=== PATIENT | male | born 1970 | race Caucasian/White ===

== ENCOUNTER 2021-11-21 00:48 | Day surgery (SDC) | payer BC, SELFPAY ==
[2021-11-10 15:41] VITALS: BMI 41.6
[2021-11-21 07:37] VITALS: BMI 39.9
[2021-11-21 07:39] VITALS: BP 138/84; PULSE 84; RESP 18; TEMP 35.9; O2SAT 99
[2021-11-21] MEDS: LACTATED RINGERS 1,000 ML 150 ML IV CONT (07:45)
--- NOTE | 2021-11-21 07:55 | WPDANESEPPF ---
Anes - Initial Pre Proc Eval Procedure: Operation Date: 11/21/21 08:30 Proposed Procedures p Screening Colonoscopy - Javier Iqbal MD Date/Time: 11/21/21 07:55 Surgeon: Javier Iqbal MD Pre Op Diagnosis: neoplasm screening Patient Data Age: 51 Gender: M Height: 1.85 m Weight: 137.1 kg Last Vital Signs Temp 96.7 F L 11/21/21 07:39 Pulse 84 11/21/21 07:39 Resp 18 11/21/21 07:39 BP 138/84 11/21/21 07:39 Pulse Ox 99 11/21/21 07:39 Allergies Allergy/AdvReac Type Severity Reaction Status Date / Time Penicillins Allergy Unknown Unknown Verified 11/10/21 15:44 Home Medications Medication Instructions Recorded Confirmed Type sodium sul 1.479 gram-potas ch See Rx Instructions PO PER PKG DIR 08/18/21 11/10/21 Rx 0.188 gram-magnes sul 0.225 gram #24 tabs tablet (Sutab) fosinopril 20 1 tablet PO DAILY 11/10/21 11/10/21 History mg-hydrochlorothiazide 12.5 mg tablet Patient hx anesthesia problems: none Family hx anesthesia problems: none Results Review: All pre-operative results and documents have been reviewed as part of the pre-operative evaluation. [facility] Family History Family History (Updated 08/08/10 @ 09:41 by DOCTOR UNKNOWN) Other Family history of arthritis Hypertension Social History Social History Smoking packs per day: 1 Smoking cigarettes per day: 20.0 Years smoked: 34 Smoking pack-years: 34.00 Smoking status: Current every day smoker Tobacco type: cigarettes Alcohol intake: current Alcohol use details: several times a week and all weekends Substance use: former Substance use type: former substance user Living arrangements: alone Spiritual care concerns: No Anes - Eval Final PreProcedure Day of Procedure 11/21/21 07:55 Patient weight: morbidly obese Heart: regular rate and rhythm Lungs: clear to auscultation Airway: Mallampati scale class III Neurological: alert and oriented Last oral intake: >/= 8 hours ASA classification: III Emergent: no Anesthetic plan: proceed Anesthesia type and monitoring: general GIVS and standard monitoring Results Review: All pre-operative results and documents have been reviewed as part of the pre-operative evaluation. Informed Consent: The patient's anesthetic plan and its attendant risks and benefits were discussed with the patient/family/POA. Questions were solicited and answers provided to the satisfaction of the patient/family/POA.
--- NOTE | 2021-11-21 08:08 | PM.HPGS ---
History of Present Illness History of Present Illness Consent: Risks, benefits, and alternatives have been discussed and questions answered. Patient agrees to proceed with procedure. Chief complaint: neoplasm screening Narrative: Ramos Tong is a 51 year old male here for first screening colonoscopy Review of Systems Constitutional: Constitutional: Denies headache(s) and Denies weakness Eyes: Eyes: Denies blurry vision ENT: Reports Normal hearing present, Denies headache(s) and Denies neck pain Cardiovascular: Cardiovascular: Denies chest pain and Denies dyspnea Respiratory: Respiratory: Denies dyspnea Gastrointestinal: Gastrointestinal: Reports no additional gastrointestinal complaints Genitourinary: Genitourinary: Denies dysuria Musculoskeletal: Musculoskeletal: Denies neck pain Integumentary/Breasts: Skin/Breast: Denies dry skin Neurologic: Reports Normal hearing present, Denies headache(s) and Denies weakness Psychiatric: Psychiatric: Denies anxiety Endocrine: Endocrine: Denies change in body appearance Hematologic/Lymphatic: Hematologic/Lymphatic: Denies easy bleeding Allergic/Immunologic: Allergic/Immunologic: Denies urticaria [facility] Past Medical History Medical History (Updated 11/21/21 @ 08:09 by Javier Iqbal MD) Colon cancer screening Family History Family History (Updated 08/08/10 @ 09:41 by DOCTOR UNKNOWN) Other Family history of arthritis Hypertension Social History Social History Smoking packs per day: 1 Smoking cigarettes per day: 20.0 Years smoked: 34 Smoking pack-years: 34.00 Smoking status: Current every day smoker Tobacco type: cigarettes Alcohol intake: current Alcohol use details: several times a week and all weekends Substance use: former Substance use type: former substance user Living arrangements: alone Spiritual care concerns: No Meds Home Medications and Allergies Home Medications Medication Instructions Recorded Confirmed Type sodium sul 1.479 gram-potas ch See Rx Instructions PO PER PKG DIR 08/18/21 11/10/21 Rx 0.188 gram-magnes sul 0.225 gram #24 tabs tablet (Sutab) fosinopril 20 1 tablet PO DAILY 11/10/21 11/10/21 History mg-hydrochlorothiazide 12.5 mg tablet Allergies Allergy/AdvReac Type Severity Reaction Status Date / Time Penicillins Allergy Unknown Unknown Verified 11/10/21 15:44 Vital Signs Vital Signs - 24 hr 11/21/21 07:39 Temperature 96.7 F L Pulse Rate 84 Respiratory Rate 18 Blood Pressure 138/84 Pulse Oximetry 99 Exam Const: General: comfortable and no acute distress HENMT: General nose exam: Normal nares present Eyes: General: appearance normal, both eyes and all related structures Neck: Neck: no JVD Resp: Auscultation: clear to auscultation bilaterally Cardio: Rate: regular rate Rhythm: regular rhythm GI: Inspection: non-distended GI Palp: Yes Soft to palpation Skin: General skin exam: normal color Neuro: General: gait normal Speech: normal speech Extrem: General: normal to inspection Psych: Mental Status: mental status grossly normal Assessment and Plan Assessment and plan (1) Colon cancer screening: Code(s): Z12.11 - Encounter for screening for malignant neoplasm of colon Status: Acute Assessment and Plan: colonoscopy
[2021-11-21 08:33] VITALS: BP 102/62; PULSE 84; RESP 20; O2SAT 99
[2021-11-21 08:43] VITALS: BP 110/59; PULSE 75; RESP 19; O2SAT 99
[2021-11-21 08:53] VITALS: BP 130/83; PULSE 66; RESP 14; O2SAT 99
== END 2021-11-21 09:25 | disposition home or self-care (01) ==
PROVIDERS: PCP Physician Assistant; Visit Provider Internal Medicine Gastroenterology
PROC: 0DJD8ZZ Inspection of Lower Intestinal Tract, Via Natural or Artificial Opening Endoscopic (ICD-10-PCS; CPT 45378; principal; 2021-11-21 08:30)
DX: Z12.11 Encounter for screening for malignant neoplasm of colon (principal); K62.1 Rectal polyp; D12.5 Benign neoplasm of sigmoid colon; D12.2 Benign neoplasm of ascending colon; F17.210 Nicotine dependence, cigarettes, uncomplicated; E66.9 Obesity, unspecified; Z68.39 Body mass index [BMI] 39.0-39.9, adult
CPT/HCPCS: 45385; 88305; J2704; J7120

== ENCOUNTER 2022-05-04 12:52 | Inpatient (IN) | payer BC, SELFPAY ==
[2022-05-04] VITALS (30 sets, daily range): BP systolic 77–117; BP diastolic 30–81; PULSE 87–106; RESP 12–26; TEMP 36–36.8; O2SAT 92–99; BMI 39.5
--- NOTE | 2022-05-04 | ECHO_ITS ---
Patient Info Name: Ramos Tong Age: 51 years : 1970 Gender: Male Ht: 73 in Wt: 295 lbs BSA: 2.68 m2 HR: 100 bpm BP: 86 / 46 mmHg Technical Quality: Poor Exam Date: 05/04/2022 2:54 PM Exam Location: [facility] [facility] Exam Room: [facility] ED 5 B1 Patient Status: Inpatient Admit Date: 05/04/2022 Staff Ordering Physician: Giovani Mcpherson MD Manager Strategic Development: Cyndi Lovelace RDCS Attending Provider: Giovani Mcpherson MD Exam Type: CA echo dop color flow w con Study Info Indications - DYSPNEA HYPOTENSION Complete two-dimensional, color flow and Doppler transthoracic echocardiogram is performed with contrast to opacify the left ventricle and to improve the deliniation of the left ventricle endocardial borders. Contrast/Agitated Saline Contrast/Ag. Saline: Definity Amount: 2.00 ml Administered By: Cyndi Lovelace [facility] Existing IV Access: Yes IV Access Condition: patent with no signs of infiltration Reason for Poor Study: patient body habitus Summary 1. Technically suboptimal study due to poor sonographic images. 2. Definity contrast administered improved wall motion interpretation. 3. Left ventricular chamber dimension is normal. 4. Left ventricular systolic function is normal, estimated at 60-65%. 5. The left ventricular diastolic function is normal. 6. E/e' 8 is minimally elevated. 7. The mitral valve has mildly calcified annulus. 8. No pulmonary hypertension, estimated pulmonary arterial systolic pressure is 37 mmHg. Left Ventricle E/e' 8 is minimally elevated. Technically suboptimal study due to poor sonographic images. Left ventricular chamber dimension is normal. Left ventricular systolic function is normal, estimated at 60-65%. The left ventricular diastolic function is normal. Definity contrast administered improved wall motion interpretation. Right Ventricle Right ventricular chamber dimension is not well visualized. Left Atria Left atrial chamber dimension is normal. Right Atria Right atrial chamber dimension is not well visualized. Aortic Valve The aortic valve is not well visualized. Cannot determine number of aortic valve leaflets. There is no aortic valve stenosis. There is no aortic valve regurgitation. Pulmonic Valve The pulmonic valve is not well visualized. Mitral Valve The mitral valve has mildly calcified annulus. There is no mitral valve stenosis. There is no mitral valve regurgitation. Tricuspid Valve The tricuspid valve leaflets are not well visualized. There is no tricuspid valve regurgitation. No pulmonary hypertension, estimated pulmonary arterial systolic pressure is 37 mmHg. Pericardium/Pleural There is no pericardial effusion. Inferior Vena Cava Normal inferior vena cava with >50% collapse upon inspiration consistent with normal right atrial pressure, 5 mmHg. Aorta The aortic root size at the sinus of Valsalva is not well visualized. Left Ventricular Outflow Tract Name Value Normal LVOT 2D LVOT Diameter 2.20 cm LVOT Doppler LVOT Peak Gradient 4 mmHg
--- NOTE | ~2022-05-04 | CT_ITS ---
EXAMINATION: CT diagnostic chest wo con DATE: 05/04/2022 15:42 INDICATION: pneumonia, dyspnea, septic shock TECHNIQUE: Computed tomography (CT) of the chest was performed without intravenous contrast. Addition al 3D reconstructions utilizing coronal maximum intensity projection (MIP) were performed. Automated exposure control and iterative reconstruction technique were employed. The dose-length product was 93 2.34 mGy-cm. COMPARISON: None FINDINGS: Small bilateral posterior layering pleural effusions with associated compressive atelectasis in the d ependent lower lobes.. Innumerable small pulmonary nodules scattered throughout both lungs with rando m distribution, the largest measuring up to 12 mm which is most concerning for metastatic disease. He art size is normal. Atherosclerotic coronary artery calcific location. No pericardial effusion. Multi ple enlarged mediastinal, supraclavicular and lower jugular chain of nodes consistent with metastatic disease. There are few soft tissue density nodules in the paravertebral and subpleural fat at the po sterior medial left mid to lower hemithorax. There are also multiple subtle hypodense hepatic nodules also suspicious for metastatic disease. Large region of decreased attenuation in the posterior right hepatic lobe which could be related to focal fat or larger malignant mass. Chronic appearing mild an terior wedging of a few vertebral bodies along with bridging osteophytes at multiple levels at the th oracolumbar junction, the latter consistent with diffuse idiopathic skeletal hyperostosis (DISH). IMPRESSION: 1. Innumerable pulmonary nodules, enlarged mediastinal and supraclavicular lymph nodes and multiple h epatic nodules, all consistent with metastatic disease. Would recommend ultrasound-guided core needle biopsy of one of the right supra clavicular lymph nodes. 2. Small bilateral dependently layering pleural effusions. Reviewed, dictated and finalized at location A. NEY BUILDER HELPER IMPRESSION: 1. Innumerable pulmonary nodules, enlarged mediastinal and supraclavicular lymp h nodes and multiple hepatic nodules, all consistent with metastatic disease. W ould recommend ultrasound-guided core needle biopsy of one of the right supra c lavicular lymph nodes. 2. Small bilateral dependently layering pleural effusions.
--- NOTE | ~2022-05-04 | XR_ITS ---
EXAMINATION: XR chest 1V portable DATE: 05/07/2022 15:14 INDICATION: Shortness of breath. TECHNIQUE: A single frontal view of the chest was obtained. COMPARISON: Chest single view from 05/04/2022, CT abdomen and pelvis 05/04/2022 FINDINGS: The right lateral costophrenic angle is excluded. There are small pleural effusions. There is a diffuse reticular nodular pattern in the lungs. There are airspace opacities in the lower lung z ones. No pneumothorax. The heart size is normal. IMPRESSION: 1. Worsened diffuse lung disease, likely a combination of widespread pulmonary metastatic disease and pulmonary edema. 2. Small pleural effusions. Reviewed, dictated and finalized at location A. ANALYST
--- NOTE | ~2022-05-04 | CT_ITS ---
EXAMINATION: CT abdomen pelvis wo con DATE: 05/04/2022 17:30 INDICATION: sepsis, lymphadenopathy TECHNIQUE: Computed tomography (CT) of the abdomen and pelvis was performed without intravenous contr ast. Automated exposure control and iterative reconstruction technique were employed. The dose-length product was 1610.09 mGy-cm. COMPARISON: None. FINDINGS: Lower thorax: Innumerable pulmonary nodules. Moderate bilateral pleural effusions. Liver: Enlarged liver. Nodular border. Heterogeneous parenchyma, with multiple masses. Likely large p osterior right lobe mass. Biliary/Gallbladder: Gallbladder distention, with mild inflammatory change. No bile duct dilation. Pancreas: No mass or duct dilation. Spleen: Normal. Adrenals:No mass. Kidneys: No mass, stone, or hydronephrosis. GI tract: No small or large bowel dilation. Normal appendix. Mesentery/Peritoneum: No ascites, mass, or free air. Upper abdominal and bandar hepatic lymphadenopath y. Retroperitoneum: No mass. Extensive retroperitoneal lymphadenopathy. Pelvis: Surgically absent uterus. Small volume free fluid. Soft Tissues: Soft tissue edema in the lower abdominal wall pannus. Mild body wall edema. Bones: Lytic lesion in L1 1 represent a metastatic lesion or hemangioma. Small lytic lesion involvin g the superior endplate of L3, may represent a metastatic lesion or a Schmorl's node. IMPRESSION: 1. Multiple pulmonary nodules suspicious for metastatic disease. Moderate bilateral pleural effusions . 2. Multiple hepatic masses, may represent primary and secondary lesions versus metastatic lesions zac ne. 3. Gallbladder hydrops with mild inflammatory change, correlate with biliary labs. 4. Retroperitoneal lymphadenopathy. 5. Inflammatory change versus edema in the lower abdominal pannus. 6. Lytic L1 and L3 lytic lesions may represent benign or malignant process. Reviewed, dictated and finalized at location K. WRESTLING COACH IMPRESSION: 1. Multiple pulmonary nodules suspicious for metastatic disease. Moderate bilat eral pleural effusions. 2. Multiple hepatic masses, may represent primary and secondary lesions versus metastatic lesions alone. 3. Gallbladder hydrops with mild inflammatory change, correlate with biliary la bs. 4. Retroperitoneal lymphadenopathy. 5. Inflammatory change versus edema in the lower abdominal pannus. 6. Lytic L1 and L3 lytic lesions may represent benign or malignant process.
--- NOTE | ~2022-05-04 | XR_ITS ---
Portable chest x-ray Comparison: 05/10/2022 Clinical History: Respiratory failure Findings: Endotracheal tube, NG tube, and right IJ line are in place. Left-sided central venous line tip is at the left superior mediastinum. Small bilateral pleural effusions are present with diffuse hazy and interstitial pulmonary disease. Cardiomediastinal silhouette is stable. Bones and soft tiss ues are unremarkable. Impression: Moderate to advanced pulmonary edema pattern with small bilateral pleural effusions. Support tubes, as above. Left-sided central venous line tip is at the left superior mediastinum. Cons ider advancement into the SVC. Reviewed, dictated and finalized at location . ER BAKER Impression: Moderate to advanced pulmonary edema pattern with small bilateral pleural effus ions. Support tubes, as above. Left-sided central venous line tip is at the left supe rior mediastinum. Consider advancement into the SVC.
--- NOTE | ~2022-05-04 | XR_ITS ---
Supine and upright views of the abdomen Clinical history: Abdominal pain Findings: Bowel gas pattern is nonspecific. Probable hyperdense stool rather than mass in the right l ower quadrant. No evidence for obstruction or free air. No abnormal mass lesion or calcification is s een. Osseous structures are intact. Probable small bilateral pleural effusions with bibasilar pulmona ry airspace disease. Impression: No significant abnormality in the abdomen or pelvis. Small bilateral pleural effusions with probable moderate pulmonary edema. Correlate clinically for pn eumonia. Reviewed, dictated and finalized at location M. EGE INTERN Impression: No significant abnormality in the abdomen or pelvis. Small bilateral pleural effusions with probable moderate pulmonary edema. Corre late clinically for pneumonia.
--- NOTE | ~2022-05-04 | XR_ITS ---
Portable chest x-ray Comparison: 05/11/2022 at 5:20 AM Clinical History: Respiratory failure Findings: Endotracheal tube, NG tube, and bilateral central venous lines are in place, unchanged. Sm [id number] bilateral pleural effusions are present with advanced pulmonary edema pattern. Cardio mediastinal silhouette is stable. Bones and soft tissues are unremarkable. Impression: Advanced pulmonary edema pattern with [id number] bilateral pleural effusions. Stable support tubes. Reviewed, dictated and finalized at location . NSION SERVICE ADVISOR Impression: Advanced pulmonary edema pattern with [id number] bilateral pleural effus ions. Stable support tubes.
--- NOTE | ~2022-05-04 | CT_ITS ---
EXAMINATION: CT chest abdomen pelvis wo con DATE: 05/08/2022 14:04 INDICATION: Hypotension. TECHNIQUE: Computed tomography (CT) of the chest, abdomen, and pelvis was performed without intraveno us contrast. Automated exposure control and iterative reconstruction technique were employed. The dos e-length product was 2215.96 mGy-cm. COMPARISON: CT abdomen and pelvis 05/04/2022, chest CT 05/04/2022 FINDINGS: CHEST CT: There are moderate-sized pleural effusions. There are innumerable nodules in the lungs bilaterally. T here is septal thickening in the lungs, consistent with pulmonary edema. There is mediastinal, bilate ral hilar, and bilateral supraclavicular lymphadenopathy. A right internal jugular central venous cat heter is seen with tip at the superior cavoatrial junction. The heart size is normal. There are coron shea artery calcifications. No pericardial effusion. Main pulmonary is enlarged, consistent with pulmo nary arterial hypertension. There are old healed bilateral rib fractures. ABDOMEN/PELVIS CT: The liver demonstrates surface nodularity, consistent with cirrhosis. There are multiple ill-defined hypodense masses in the liver, worst in right hepatic lobe where there is a 13.7 cm mass. There is co ntrast in the gallbladder, which is normal in size. The spleen, pancreas, adrenal glands, and kidneys are normal. The bladder is decompressed by a Lan catheter. There are no dilated loops of bowel. Th ere is periportal, periceliac, peripancreatic, left para-aortic, aortocaval, and bilateral common ba ac lymphadenopathy. There is a right inguinal hernia containing fat. There is a small volume of ascit es. Body wall edema is noted. There are chronic bilateral L5 pars defects. There is a lytic lesion in L1 vertebral body. IMPRESSION: 1. Pulmonary nodules, liver masses, and chest and abdominal lymphadenopathy, consistent with metastat ic disease. Biopsy results are pending. 2. Mild pulmonary edema. 3. Moderate-sized pleural effusions with worsening on the left. 4. Small volume of ascites with interval worsening. 5. Cirrhosis of liver. 6. L1 lytic lesion, which may be a hemangioma or metastatic disease. Reviewed, dictated and finalized at location A. WORKS INSPECTOR IMPRESSION: 1. Pulmonary nodules, liver masses, and chest and abdominal lymphadenopathy, co nsistent with metastatic disease. Biopsy results are pending. 2. Mild pulmonary edema. 3. Moderate-sized pleural effusions with worsening on the left. 4. Small volume of ascites with interval worsening. 5. Cirrhosis of liver. 6. L1 lytic lesion, which may be a hemangioma or metastatic disease.
--- NOTE | ~2022-05-04 | XR_ITS ---
EXAMINATION: XR chest 1V portable DATE: 05/08/2022 12:09 INDICATION: Shortness of breath TECHNIQUE: frontal view of the chest was obtained. COMPARISON: Chest radiograph dated 05/07/[address] dated 05/04/2022 FINDINGS: No significant change in diffuse bilateral indistinct interstitial pattern with peribronchial cuffing and airspace opacities in bilateral lower lung zones. Blunting at the bilateral costophrenic angles. The cardiomediastinal silhouette is normal. Visualized bones and soft tissues are unremarkable. IMPRESSION: 1. No significant change in diffuse bilateral lung disease consistent with likely combination of pulm onary edema superimposed over metastatic disease better appreciated on prior CT. Differential include s pneumonia. 2. Small bilateral pleural effusions. Reviewed, dictated and finalized at location A. H AGENT IMPRESSION: 1. No significant change in diffuse bilateral lung disease consistent with like ly combination of pulmonary edema superimposed over metastatic disease better a ppreciated on prior CT. Differential includes pneumonia. 2. Small bilateral pleural effusions.
--- NOTE | ~2022-05-04 | US_ITS ---
EXAMINATION: US biopsy lymph node DATE: 05/06/2022 13:27 INDICATION: Liver mass, multiple pulmonary nodules and enlarged lymph nodes suspicious for metastatic disease. TECHNIQUE: The procedure including the risks and benefits was discussed with the patient. Risks discu ssed included bleeding and infection. The patient understood the risks and agreed to proceed. The sk in overlying the right supraclavicular region was prepped and draped in usual sterile fashion. Anest hetic was administered with 1% lidocaine subcutaneously. An 18 gauge core biopsy needle was advanced under continuous ultrasound observation to the lesion of interest. 3 core biopsy specimens were obt ained. The needle was removed and the entry site was cleaned and dressed. Post procedure ultrasound demonstrated no hemorrhage. FINDINGS: Ultrasound images demonstrate 2.2 x 1.9 x 1.4 cm right supraclavicular lymph node with lobu lar margins. Subsequent images demonstrate biopsy needle advanced into the lymph node node of concern . IMPRESSION: 1. Successful Ultrasound-guided biopsy of a 2.2 x 1.9 x 1.4 cm right supraclavicular lymph node suspi cious for metastatic disease. Reviewed, dictated and finalized at location A. MESH KNITTER IMPRESSION: 1. Successful Ultrasound-guided biopsy of a 2.2 x 1.9 x 1.4 cm right supraclavi cular lymph node suspicious for metastatic disease.
--- NOTE | ~2022-05-04 | XR_ITS ---
EXAMINATION: XR chest port-a-cath/central DATE: 05/08/2022 13:40 INDICATION: Line placement TECHNIQUE: frontal view of the chest was obtained. COMPARISON: Chest radiograph dated 05/08/2022 FINDINGS: Interval placement of a large-bore right internal jugular central venous catheter with distal tip tata r the superior cavoatrial junction. Persistent bilateral diffuse indistinct interstitial opacities an d more patchy airspace opacities in the lower lung zones. Blunting at the costophrenic angles consist ent with small bilateral pleural effusions. No pneumothorax. The cardiomediastinal silhouette is with in normal limits for AP technique and accounting for slight rightward rotation. IMPRESSION: 1. Internal jugular central venous catheter tip at the superior cavoatrial junction. No pneumothorax. 2. Persistent diffuse bilateral lung disease which could represent pulmonary edema, pneumonia, metast atic disease or some combination thereof. 3. Small bilateral pleural effusions. Reviewed, dictated and finalized at location A. ROENTEROLOGY NURSE IMPRESSION: 1. Internal jugular central venous catheter tip at the superior cavoatrial junc tion. No pneumothorax. 2. Persistent diffuse bilateral lung disease which could represent pulmonary ed leesa, pneumonia, metastatic disease or some combination thereof. 3. Small bilateral pleural effusions.
--- NOTE | ~2022-05-04 | XR_ITS ---
EXAMINATION: XR chest port-a-cath/central INDICATION: Respiratory failure TECHNIQUE: Portable AP chest at 1024 hours COMPARISON: 0746 hours FINDINGS: A left internal jugular central venous catheter is been inserted which ends with its tip in the brachiocephalic vein. A right internal jugular central venous catheter ends with its tip in the distal superior vena cava. The endotracheal tube ends approximately 5 cm above the kevon. The nasoga stric tube is followed as far as the stomach. Its tip is beyond the inferior margin of the radiograph . Diffuse interstitial and airspace opacities persist throughout all lung zones without significant c hange. No pneumothorax identified. There are small pleural effusions. IMPRESSION: 1. Left internal jugular central venous catheter inserted ending in the brachiocephalic vein. No pneu mothorax. Otherwise, no change. Reviewed, dictated and finalized at location A. M PRESSER IMPRESSION: 1. Left internal jugular central venous catheter inserted ending in the brachio cephalic vein. No pneumothorax. Otherwise, no change.
--- NOTE | ~2022-05-04 | XR_ITS ---
EXAMINATION: XR chest 1V portable DATE: 05/04/2022 13:34 INDICATION: Dyspnea. TECHNIQUE: A single frontal view of the chest was obtained. COMPARISON: Chest 2 views 02/20/2008 FINDINGS: There is a diffuse reticulonodular pattern in the lungs with a lower lung predominance. No pleural effusion or pneumothorax. The heart size is normal. IMPRESSION: 1. Diffuse lung disease with a lower lung predominance, consistent with pulmonary edema versus pneumo alvina. Reviewed, dictated and finalized at location A. Y PACKER IMPRESSION: 1. Diffuse lung disease with a lower lung predominance, consistent with pulmona ry edema versus pneumonia.
--- NOTE | ~2022-05-04 | XR_ITS ---
EXAMINATION: XR abdomen NG/feed tube insert INDICATION: OG placement TECHNIQUE: Portable AP KUB-NG at 0745 hours COMPARISON: 05/07/2022 FINDINGS: The OG tube is in the stomach. There are diffuse interstitial and airspace opacities throug hout the visualized lung bases. Healed left-sided rib fractures are noted. There is mildly dilated sm all bowel in the visualized left upper quadrant. IMPRESSION: 1. OG tube in the stomach. 2. Mildly dilated small bowel in the left upper quadrant, likely ileus. Reviewed, dictated and finalized at location A. NARY WORKER
--- NOTE | ~2022-05-04 | US_ITS ---
EXAMINATION: US renal BI DATE: 05/04/2022 21:18 INDICATION: WILLIAN TECHNIQUE: Multiple grayscale and Doppler ultrasound images of the kidneys were obtained. COMPARISON: CT abdomen and pelvis, same date. FINDINGS: The right kidney measures 12.6 x 6.1 x 7.3 cm. The left kidney measures 12.7 x 7.0 x 7.3 cm. The kidn eys demonstrate normal parenchymal echogenicity. There is no hydronephrosis. The bladder is nondisten ded, poorly evaluated. Small volume free abdominopelvic fluid. IMPRESSION: Bladder not well evaluated. Small volume free abdominopelvic fluid. Otherwise unremarkable renal sono gram findings. Reviewed, dictated and finalized at location K. ON AND BUCKLE MAKER IMPRESSION: Bladder not well evaluated. Small volume free abdominopelvic fluid. Otherwise u nremarkable renal sonogram findings.
--- NOTE | ~2022-05-04 | US_ITS ---
EXAMINATION: US venous doppler [facility] DATE: 05/05/2022 16:08 INDICATION: edema . TECHNIQUE: Grayscale images without and with compression and Doppler images of the bilateral lower ex tremity veins were obtained. COMPARISON: None FINDINGS: The right common femoral vein, profunda (deep) femoral vein, femoral vein, popliteal vein, peroneal v ein, posterior tibial veins, gastrocnemius vein, and greater saphenous vein are patent. The left common femoral vein, profunda femoral vein, femoral vein, popliteal vein, peroneal vein, pos terior tibial veins, gastrocnemius vein, and greater saphenous vein are patent. IMPRESSION: 1. Patent bilateral lower extremity veins. No evidence of deep venous thrombosis. Reviewed, dictated and finalized at location K. MINER BLASTING IMPRESSION: 1. Patent bilateral lower extremity veins. No evidence of deep venous thrombos is.
--- NOTE | ~2022-05-04 | XR_ITS ---
EXAMINATION: XR chest ET placement INDICATION: Endotracheal tube placement TECHNIQUE: Portable AP chest at 0746 hours COMPARISON: 05/08/2022 FINDINGS: The endotracheal tube ends approximately 2.4 cm above the kevon. The nasogastric tube is f ollowed as far as the stomach. Its tip is beyond the inferior margin of the radiograph. There are dif fuse interstitial and airspace opacities throughout all lung zones. Pleural effusions are present. Th e cardiomediastinal silhouette is normal. A right internal jugular catheter ends with its tip in the distal superior vena cava. IMPRESSION: 1. Lines and tubes in adequate position. 2. Diffuse lung disease, consistent with pneumonia and/or pulmonary edema and/or acute respiratory di stress syndrome (ARDS). 3. Bilateral pleural effusions. Reviewed, dictated and finalized at location A. ING IMPAIRED TEACHER IMPRESSION: 1. Lines and tubes in adequate position. 2. Diffuse lung disease, consistent with pneumonia and/or pulmonary edema and/o r acute respiratory distress syndrome (ARDS). 3. Bilateral pleural effusions.
--- NOTE | 2022-05-04 12:57 | ED.SOB ---
HPI - SOB/Dyspnea General Chief Complaint: Shortness of Breath/Dyspnea Stated Complaint: shortness of breath Time Seen by Provider: 05/04/22 12:56 Source: patient Mode of arrival: ambulatory Limitations: no limitations History of Present Illness HPI Narrative: Patient is a 51-year-old male presenting to the emergency department for evaluation of shortness of breath. Patient states that he began to have what seemed like a viral illness on April 08. Patient with intermittent fever, cough and congestion and had a positive close sick contact who tested positive for influenza at the time. Patient states that he has had worsening shortness of breath over the past several days. He reports dry cough and chest pain with coughing. He reports dyspnea that is exacerbated with exertion but that he also appreciates at rest. He reports mild wheezing. Patient states he is a previous smoker, states that he has not been smoking this month since symptoms began. He is not sure if he has been febrile. Patient reports significant fatigue. Patient denies any calf pain or leg swelling. Denies pleuritic chest pain. Patient was able to drive himself to the emergency department today. Patient states he never had confirmative viral testing since the beginning of his symptoms. Related Data Home Medications Medication Instructions Recorded Confirmed fosinopril 20 1 tablet PO DAILY 11/10/21 11/10/21 mg-hydrochlorothiazide 12.5 mg tablet Allergies Allergy/AdvReac Type Severity Reaction Status Date / Time Penicillins Allergy Unknown Unknown Verified 11/10/21 15:44 Review of Systems Review of Systems: CONSTITUTIONAL: Denies fever, chills, or sweats. ENT: Reports rhinorrhea and congestion CARDIOVASCULAR: Denies chest pain, palpitations, or edema. RESPIRATORY: Reports cough and dyspnea GASTROINTESTINAL: Denies abdominal pain, nausea, vomiting, or diarrhea. GENITOURINARY: Denies dysuria or hematuria. SKIN: Denies rash or itching. MUSCULOSKELETAL: Denies back pain, joint pain, reports myalgias NEUROLOGIC: Denies headache, numbness, or weakness. [facility] Past Medical History Medical History (Updated 05/04/22 @ 17:13 by Lita Kwong MD) Colon cancer screening Hypertension Tobacco dependence Surgical History Surgical History (Updated 05/04/22 @ 16:29 by Yasmin Wong PA-C) History of colonoscopy with polypectomy (11/2021) Tubular adenoma x2 (ascending and sigmoid). Hyperplastic polyp (rectal). History of incision and drainage (08/2016) Left palm and middle finger for abscess with associated cellulitis due to dog bite. Family History Family History Other Family history of arthritis Hypertension Social History Social History (Updated 05/04/22 @ 16:30 by Yasmin Wong PA-C) Social History: Surrogate medical decision maker: Code status: Full code. Smoking packs per day: 1 Smoking cigarettes per day: 20.0 Years smoked: 34 Smoking pack-years: 34.00 Smoking status: Current every day smoker Tobacco type: cigarettes Alcohol intake: current Alcohol use details: several times a week and all weekends Substance use: former Substance use type: former substance user Living arrangements: alone Spiritual care concerns: No Exam Narrative: GENERAL: Awake, alert, conversant HEAD: Normocephalic, atraumatic. EYES: PERRLA and EOMI. ENT: Nares clear, no rhinorrhea or epistaxis. Mucous membranes moist. NECK: Supple. CHEST: No respiratory distress, slight labored respirations on exam, coarse breath sounds bilaterally HEART: Tachycardic rate, sinus rhythm ABDOMEN:Obese, Non distended, non tender EXTREMITIES: Normal range of motion. No edema. SKIN: Extremities are cool NEURO:No focal deficits. Alert and oriented x3 Course Vital Signs Vital signs: Vital Signs Pulse Rate 106 H 05/04/22 13:03 Respiratory Rate 21 H 05/04/22 1
--- NOTE | 2022-05-04 12:58 | ECG_ITS ---
Measurements Intervals [place] Rate: 103 P: 77 NH: 149 QRS: 36 QRSD: 90 T: 53 QT: 333 QTc: 437 Interpretive Statements SINUS TACHYCARDIA DELAYED PRECORDIAL R/S TRANSITION LOW QRS VOLTAGE IN LIMB LEADS BORDERLINE ST-T WAVE ABNORMALITY- INF/LAT LEADS BASELINE ARTIFACT- I, II, III, AVR, AVL, AVF, V2-V6 BORDERLINE ECG NO PREVIOUS ECG AVAILABLE FOR COMPARISON Electronically Signed On 05-04-2022 13:26:59 ENVIRONMENTAL PLANNER by Rodriguez Bautista D.O.
[2022-05-04] MEDS: ALBUTEROL SULFATE NEB 2.5 MG/3 ML INH 5 MG INHALATION (13:30)
[2022-05-04] MEDS: IPRATROPIUM BR 0.02% INH SOLN 0.5 MG/2.5 ML VIAL INHALATION (13:30)
[2022-05-04 13:32] LABS: Hematocrit 48.9 % (42.0-52.0); Hemoglobin 15.6 g/dL (14.0-18.0); Immature Platelet Fraction Pct 6.4 % (0.9-11.2); Mean Corpuscular HGB Conc 31.9 g/dl (32-36); Mean Corpuscular Hemoglobin 32.8 pg (26-34); Mean Corpuscular Volume 102.9 fl (80-100); Red Blood Count 4.75 M/mm3 (4.6-6.20); Red Cell Distribution Width 14.3 % (11.5-14.5)
[2022-05-04 13:45] LABS: Lactic Acid Reflex 4.9 mmol/L (0.7-2.0)
[2022-05-04] MEDS: SODIUM CHLORIDE 0.9% IV 1,000 ML 999 ML IV CONT ×3 (13:53→16:03)
[2022-05-04] MEDS: methylPREDNISolone SOD SUCC 125 MG VIAL IV PUSH (13:55)
[2022-05-04 13:58] LABS: Lymphocytes Absolute Manual 4.03 K/mm3 (1.1-4.5); Lymphocytes Percent Manual 13 % (18-44); Monocytes Absolute Manual 2.79 K/mm3 (0.1-0.90); Monocytes Percent Manual 9 % (3-9); Neutrophils Percent Manual 78 % (46-73); Total Cells Counted 100
[2022-05-04 14:00] LABS: Schistocytes None Seen (NORMAL)
[2022-05-04 14:06] LABS: Influenza A QL RT-PCR Negative (Negative); Influenza B QL RT-PCR Negative (Negative); RSV RNA, RT-PCR Negative (Negative); SARS-CoV-2 RNA PCR Negative
[2022-05-04 14:21] LABS: Alanine Aminotransferase 48 U/L (6-50); Albumin Level 3.4 g/dL (3.5-5.1); Alkaline Phosphatase 316 U/L (38-126); Anion Gap 18 mmol/L (8-16); Aspartate Amino Transferase 120 U/L (17-59); Bilirubin,Total 1.3 mg/dL (0.2-1.3); Blood Urea Nitrogen 87 mg/dL (9-20); Calcium 8.1 mg/dL (8.4-10.2); Carbon Dioxide 14 mmol/L (22-30); Chloride 93 mmol/L (98-107); Estimated Glomerular Filt Rate 10; Glucose 98 mg/dL (65-110); Potassium 5.2 mmol/L (3.4-5.0); Sodium 125 mmol/L (137-145)
[2022-05-04 14:24] LABS: NT Pro B Type Natriuretic Pept 859 pg/mL (19.9-100); Troponin I < 0.012 ng/mL (0.000-0.034)
[2022-05-04 14:43] LABS: Alveolar/Arterial O2 Gradient 41.7 mmHg; Base Excess ABG -13.1 mEq/l (+/-2.0); Carboxyhemoglobin 0.7 % THb (0-2.0); Fractional Inspired Oxygen 21 %; HCO3 ABG 12.8 mEq/l (22.0-26.0); Methemoglobin ABG 0.3 %THb (0-1.5); Oxygen Content ABG 17.8 %vol (16.0-22.0); Oxygen Saturation ABG 92.2 % (95.0-100.0); Oxyhemoglobin 90.7 % THb (90.0-100.0); PCO2 ABG 30.1 mmHg (35.0-45.0); PO2 FiO2 Ratio Arterial Blood 3.43 %; Reduced Hemoglobin 8.3 %THb (0-5.0); Total Hemoglobin 13.9 g/dL (12.0-18.0)
[2022-05-04 14:45] LABS: Device ROOM AIR; Modified Allen's Test Pass; Site Drawn RIGHT RADIAL; pH ABG 7.245 (7.350-7.450)
[2022-05-04 14:49] LABS: Procalcitonin 9.5 ng/mL
[2022-05-04 14:58] LABS: CRP 30.6 mg/dL (<1.0)
[2022-05-04] MEDS: PERFLUTREN LIPID MICROSPHERES 1.5 ML VIAL DILUTED TO 10 ML TOTAL VOLUME IV PUSH (15:30)
[2022-05-04 16:28] LABS: Reflex Lactic Acid Yes or No Add Lactic
[2022-05-04] MEDS: CALCIUM GLUCONATE 1,000 MG/10 ML VIAL 1000 MG IV PUSH (16:29)
[2022-05-04] MEDS: SODIUM BICARBONATE 8.4% 50 MEQ/50 ML SYRINGE IV PUSH (16:29)
--- NOTE | 2022-05-04 16:30 | PM.IMHP ---
H&P: HPI History of Present Illness Date/Time: 05/04/22 16:30 Chief Complaint: Shortness of breath. Narrative: This is a 51-year-old male smoker with history of hypertension and benign colon polyps who presented to the emergency department from home for evaluation of shortness of breath. Patient provides the following history. A friend tested positive for influenza at the beginning of April and he developed similar URI symptoms thereafter (intermittent fever, nonproductive cough, congestion). His symptoms have lingered however and he reports progressive dyspnea on exertion with wheezing. He was prescribed inhaler and a Medrol Dosepak on 04/22/2022 by his primary care provider though that has not helped much. His appetite has been poor and he estimates that he has lost about 20 lb in the past 1 month. He has reports a decrease in urine output, straining to start his urine stream, and constipation. He is very fatigued and has little to no energy. Due to ongoing symptoms he came in today for evaluation. He denies headache, neck ache, syncope, near syncope, sore throat, exertional chest pain, orthopnea, vomiting, diarrhea, dysuria, edema, and rash. On arrival to ED is blood pressures were soft but they have responded to IV fluids. Clinical picture is consistent with sepsis (hypotension, leukocytosis, acute kidney injury, lactic acidosis, markedly elevated CRP) in the setting of what appears to be multifocal pneumonia. He was negative for influenza, COVID, and RSV. A chest CT was ordered to further delineate findings noted on chest x-ray and that showed innumerable pulmonary nodules, multiple hepatic nodules, and lymphadenopathy consistent with metastatic disease. He is being admitted in this setting for further treatment and evaluation. Review of Systems Review of Systems: Twelve systems were reviewed and are negative except for as per HPI. [facility] Past Medical History Medical History Hypertension Tobacco dependence Surgical History Surgical History (Updated 05/05/22 @ 00:38 by Yasmin Wong PA-C) History of colonoscopy with polypectomy (11/2021) Tubular adenoma x2 (ascending and sigmoid). Hyperplastic polyp (rectal). History of incision and drainage (08/2016) Left palm and middle finger for abscess with associated cellulitis due to dog bite. Family History Family History Other Family history of arthritis Hypertension Social History Social History (Updated 05/05/22 @ 00:38 by Yasmin Wong PA-C) Social History: Surrogate medical decision maker: Albaro Tong, mother. Code status: Full code. 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 Spiritual care concerns: No Meds Home Medications and Allergies Home Medications Medication Instructions Recorded Confirmed Type fosinopril 20 1 tablet PO DAILY 11/10/21 05/04/22 History mg-hydrochlorothiazide 12.5 mg tablet albuterol sulfate 90 mcg/actuation 1 puff inhalation Q4H PRN 04/22/22 05/04/22 Rx aerosol inhaler shortness of breath or wheezing #6.7 grams Allergies Allergy/AdvReac Type Severity Reaction Status Date / Time Penicillins Allergy Unknown Unknown Verified
[2022-05-04] MEDS: ACETAMINOPHEN 500 MG TABLET 1000 MG PO (16:31)
--- NOTE | 2022-05-04 18:04 | PC.NURSE ---
This patient, Ramos Tong, was admitted to Intensive Care Unit-3. Patient/family oriented to hospital policies and general routines including ID bracelet, bed and alarms, visiting hours, pain management, procedures, bathroom and other care routines, personal items, smoking policy, room service/diet, and visiting hours. Information on how to activate the Rapid Response Team has been discussed. Patient/Family are encouraged to report perceived risks to care and to ask questions if they do not understand what they are told or what they should do.
[2022-05-04 18:30] LABS: Lactic Acid Reflex 2.8 mmol/L (0.7-2.0)
[2022-05-04 18:31] LABS: INR 1.4
[2022-05-04 18:32] LABS: Partial Thromboplastin Time 29.7 SECONDS (22.3-36.8)
[2022-05-04 18:40] LABS: Albumin Level 3.2 g/dL (3.5-5.1); Anion Gap 14 mmol/L (8-16); Blood Urea Nitrogen 88 mg/dL (9-20); Calcium 7.4 mg/dL (8.4-10.2); Carbon Dioxide 17 mmol/L (22-30); Chloride 93 mmol/L (98-107); Creatine Kinase 363 U/L (55-170); Glucose 107 mg/dL (65-110); Magnesium 3.1 mg/dL (1.6-2.3); Phosphorus 12.4 mg/dL (2.5-4.5); Potassium 5.3 mmol/L (3.4-5.0); Sodium 124 mmol/L (137-145)
[2022-05-04 18:44] LABS: Troponin I < 0.012 ng/mL (0.000-0.034)
[2022-05-04] MEDS: LACTATED RINGERS 1,000 ML 125 ML IV CONT (18:58)
[2022-05-04 19:19] LABS: Estimated CRCL calculation 22 ml/min; Estimated Glomerular Filt Rate 11
[2022-05-04 20:31] LABS: Appearance Urine Cloudy (Clear); Bilirubin Urine 1+ (Negative); Blood Urine 1+ (Negative); Color Urine Yellow (Yellow); Glucose Urine UA Negative (Negative); Ketones Urine Negative (Negative); Leukocyte Esterase Ur Negative LEU/UL (Negative); Nitrate Urine Positive (Negative); Protein Urine 2+ mg/dL (Negative); Specific Grav Ur >= 1.030 (1.001-1.035); Urobilinogen Urine 0.2 mg/dL (<2.0)
[2022-05-04 20:36] LABS: Free T4 Free Thyroxine Reflex 1.03 ng/dL (0.78-2.19)
[2022-05-04 20:37] LABS: Amorphous Sediment Urine Few; Bacteria Urine Trace /hpf; Hyaline Casts Urine 20-29 /lpf; Mucus Urine Few /lpf; Squamous Epithelial Cell Urine Few /hpf (Few); WBC Clumps Urine Present /HPF; WBC Urine 31-50 /hpf
[2022-05-04 20:45] LABS: Add Urine Microscopic? YES
--- NOTE | 2022-05-04 21:04 | PC.NURSE ---
Updated Dr. Miller regarding patient labs and vital signs. Continue with current plan of care.
[2022-05-04 21:21] LABS: Creatinine Urine 200.9 mg/dL; Total Protein Urine Random 80 mg/dL
[2022-05-04 21:26] LABS: Sodium Urine Random 36 meq/L
[2022-05-04 21:46] LABS: Eosinophil Urine None Seen % (None Seen); Urine Eos QC 2nd Tech Confirmed
[2022-05-04 22:03] LABS: Troponin I < 0.012 ng/mL (0.000-0.034)
[2022-05-05] VITALS (17 sets, daily range): BP systolic 85–117; BP diastolic 51–66; PULSE 85–99; RESP 12–23; TEMP 36.4–36.9; O2SAT 91–98
[2022-05-05 00:24] LABS: Total Triiodothyronine (T3) 0.62 NG/ML (0.97-1.69)
[2022-05-05] MEDS: LACTATED RINGERS 1,000 ML 125 ML IV CONT (01:59)
[2022-05-05 04:45] LABS: Hematocrit 41.8 % (42.0-52.0); Hemoglobin 13.5 g/dL (14.0-18.0); Mean Corpuscular HGB Conc 32.3 g/dl (32-36); Mean Corpuscular Hemoglobin 32.8 pg (26-34); Mean Corpuscular Volume 101.7 fl (80-100); Mean Platelet Volume 9.9 fl (7.4-10.4); Platelet Count Result 224 k/mm3 (150-375); Red Blood Count 4.11 M/mm3 (4.6-6.20); Red Cell Distribution Width 14.6 % (11.5-14.5); White Blood Count 34.9 K/mm3 (4.5-10.0)
[2022-05-05 04:55] LABS: Lactic Acid Reflex 1.5 mmol/L (0.7-2.0)
[2022-05-05 05:16] LABS: Alanine Aminotransferase 55 U/L (6-50); Albumin Level 2.8 g/dL (3.5-5.1); Alkaline Phosphatase 270 U/L (38-126); Anion Gap 12 mmol/L (8-16); Aspartate Amino Transferase 127 U/L (17-59); Bilirubin,Total 0.9 mg/dL (0.2-1.3); Blood Urea Nitrogen 93 mg/dL (9-20); Carbon Dioxide 17 mmol/L (22-30); Chloride 99 mmol/L (98-107); Creatine Kinase 223 U/L (55-170); Estimated CRCL calculation 24 ml/min; Estimated Glomerular Filt Rate 13; Glucose 144 mg/dL (65-110); Magnesium 3.3 mg/dL (1.6-2.3); Potassium 5.4 mmol/L (3.4-5.0); Sodium 128 mmol/L (137-145)
[2022-05-05 05:17] LABS: Band Neutrophils Percent 3 % (0-6); Lymphocytes Absolute Manual 0.34 K/mm3 (1.1-4.5); Monocytes Absolute Manual 0.69 K/mm3 (0.1-0.90); Monocytes Percent Manual 2 % (3-9); Neutrophils Absolute Manual 33.85 K/mm3 (1.3-6.7); Neutrophils Percent Manual 94 % (46-73); Total Cells Counted 100
[2022-05-05 05:18] LABS: Platelet Estimate Adequate (Adequate); Schistocytes None Seen (NORMAL)
[2022-05-05 05:57] LABS: Hepatitis B Surface Antigen Negative (Negative)
[2022-05-05 06:06] LABS: HAV RESULT Negative (Negative); Hepatitis B Core IgM Result Negative (Negative)
[2022-05-05 06:12] LABS: Hepatitis B Surface Anti Res Negative
[2022-05-05 06:18] LABS: Hepatitis C Virus Antibody Negative (Negative)
--- NOTE | 2022-05-05 08:46 | P.CONNP_ITS ---
Assessment and Plan Assessment and plan (1) Acute kidney injury: Code(s): N17.9 - Acute kidney failure, unspecified Status: Acute Assessment and Plan: * likely ATN with multifactorial etiology: * prerenal factors * hypotension/shock * POLI-I/diuretic use SOCIAL MEDIA EDITOR * infection/sepsis * evaluation to date: * urine electrolytes prerenal * urine eosinophils negative * renal ultrasound without obstruction * CPK mildly elevated but coming down * continue IVF resuscitation as tolerated * maintain blood pressure/MAP * remains at risk for needing CABLE TELEVISION ACCESS COORDINATOR/dialysis * follow repeat labs and UOP (2) Septic shock: Code(s): A41.9 - Sepsis, unspecified organism; R65.21 - Severe sepsis with septic shock Status: Acute Assessment and Plan: * as evidenced by presentation with low BP, lactic acidosis, tachycardia, elevatede WBC and WILLIAN * thought to be secondary to pneumonia +/- UTI * follow culture data * follow hemodynamics (3) Multifocal pneumonia: Code(s): J18.9 - Pneumonia, unspecified organism Status: Acute Assessment and Plan: * as noted by admission imaging * CT of chest results noted -- innumerable pulmonary nodules, multiple hepatic nodules, and lymphadenopathy suspicious for metastatic disease * suspect will tissues biopsy for a definitive diagnosis * follow culture data * on antibiotics (4) Urinary tract infection: Code(s): N39.0 - Urinary tract infection, site not specified Status: Acute Assessment and Plan: * urinalysis highly suggestive * follow cultures * on antibiotics (5) Metabolic acidosis: Code(s): E87.20 - Acidosis, unspecified Status: Acute Assessment and Plan: * secondary to lactic acidosis from sepsis and WILLIAN * doing a bit better at this time * consider bicarb fluids if worsens * follow trend of lactic acid (6) Elevated LFTs: Code(s): R79.89 - Other specified abnormal findings of blood chemistry Status: Acute Assessment and Plan: * presumably related to shock/low BP * however, cannot deny possibility that it is related to liver massess * follow trend Long and extensive discussion ( greater than 20 minutes) with the patient regarding his severe renal dysfunction and associated electrolyte abnormalities and acid-base disorder. I discussed with him that if his renal function does not improve or few runs into further problems with hyperkalemia, worsening metabolic acidosis, uremia...etc, he may require renal replacement therapy/dialysis. He appeared to voice understanding. Will continue to follow. History of Present Illness Reason for Consult Consult date: 05/05/22 Reason for consult: acute renal failure Chief Complaint Chief complaint: septic shcok,pneumonia,acute renal failure History of Present Illness Narrative: The patient is a 51-year-old male with a past medical history as outlined below who presented to [facility] Emergency room for further evaluation of shortness of breath. In early April, he developed symptoms of intermittent fevers, nonproductive cough, and congestion which seemed to correlate around the same time 1 of his friends tested positive for influenza. Apparently, the symptoms have liver Ethel GERD up until now although now he reports progressive worsening of his shortness of breath in association with dyspnea on exertion and associated wheezing. He apparently was prescribed a Medrol dose pack and inhaler by his primary care physician in mid April o
--- NOTE | 2022-05-05 08:46 | PM.CNNEP ---
Assessment and Plan Assessment and plan (1) Acute kidney injury: Code(s): N17.9 - Acute kidney failure, unspecified Status: Acute Assessment and Plan: likely ATN with multifactorial etiology: prerenal factors hypotension/shock POLI-I/diuretic use TRIM CARPENTER infection/sepsis evaluation to date: urine electrolytes prerenal urine eosinophils negative renal ultrasound without obstruction CPK mildly elevated but coming down continue IVF resuscitation as tolerated maintain blood pressure/MAP remains at risk for needing EMISSIONS TESTING TECHNICIAN/dialysis follow repeat labs and UOP (2) Septic shock: Code(s): A41.9 - Sepsis, unspecified organism; R65.21 - Severe sepsis with septic shock Status: Acute Assessment and Plan: as evidenced by presentation with low BP, lactic acidosis, tachycardia, elevatede WBC and WILLIAN thought to be secondary to pneumonia +/- UTI follow culture data follow hemodynamics (3) Multifocal pneumonia: Code(s): J18.9 - Pneumonia, unspecified organism Status: Acute Assessment and Plan: as noted by admission imaging CT of chest results noted -- innumerable pulmonary nodules, multiple hepatic nodules, and lymphadenopathy suspicious for metastatic disease suspect will tissues biopsy for a definitive diagnosis follow culture data on antibiotics (4) Urinary tract infection: Code(s): N39.0 - Urinary tract infection, site not specified Status: Acute Assessment and Plan: urinalysis highly suggestive follow cultures on antibiotics (5) Metabolic acidosis: Code(s): E87.20 - Acidosis, unspecified Status: Acute Assessment and Plan: secondary to lactic acidosis from sepsis and WILLIAN doing a bit better at this time consider bicarb fluids if worsens follow trend of lactic acid (6) Elevated LFTs: Code(s): R79.89 - Other specified abnormal findings of blood chemistry Status: Acute Assessment and Plan: presumably related to shock/low BP however, cannot deny possibility that it is related to liver massess follow trend Long and extensive discussion ( greater than 20 minutes) with the patient regarding his severe renal dysfunction and associated electrolyte abnormalities and acid-base disorder. I discussed with him that if his renal function does not improve or few runs into further problems with hyperkalemia, worsening metabolic acidosis, uremia...etc, he may require renal replacement therapy/dialysis. He appeared to voice understanding. Will continue to follow. History of Present Illness Reason for Consult Consult date: 05/05/22 Reason for consult: acute renal failure Chief Complaint Chief complaint: septic shcok,pneumonia,acute renal failure History of Present Illness Narrative: The patient is a 51-year-old male with a past medical history as outlined below who presented to [facility] Emergency room for further evaluation of shortness of breath. In early April, he developed symptoms of intermittent fevers, nonproductive cough, and congestion which seemed to correlate around the same time 1 of his friends tested positive for influenza. Apparently, the symptoms have liver Ethel GERD up until now although now he reports progressive worsening of his shortness of breath in association with dyspnea on exertion and associated wheezing. He apparently was prescribed a Medrol dose pack and inhaler by his primary care physician in mid April of this year but these medications/interventions have not helped at all. He also reports a poor appetite and thinks he has lost about 20 lb in the last month or so. He also notices a decrease in urine output in association with constipation as well as fatigue and poor energy level. Given these constellation of symptoms, he presented to the emergency room for further assessment Workup and evaluation emergency room demonstrated the patient be alma
--- NOTE | 2022-05-05 09:11 | WPDCNINT ---
Assessment and Plan Assessment and plan (1) Sepsis: Code(s): A41.9 - Sepsis, unspecified organism Status: Acute Assessment and Plan: Patient presented with picture consistent of sepsis Likely source is UTI and possibly a multifocal pneumonia Patient appears to had viral infection earlier this month which could have been followed by bacterial secondary infection Blood and urine cultures have been sent and are pending Mycoplasma IgM, urine Legionella antigen, urine pneumococcal antigen -pending Influenza RSV and COVID were negative Continue empiric antibiotics in the form of vancomycin cefepime and azithromycin Patient on IV fluids which will be continued Patient has not required any vasopressors till now and lactic acid level has normalized (2) Multifocal pneumonia: Code(s): J18.9 - Pneumonia, unspecified organism Status: Acute Assessment and Plan: See above (3) Urinary tract infection: Code(s): N39.0 - Urinary tract infection, site not specified Status: Acute Assessment and Plan: See above (4) Acute kidney injury: Code(s): N17.9 - Acute kidney failure, unspecified Status: Acute Assessment and Plan: Patient presented with acute kidney injury which is likely multifactorial secondary to sepsis, POLI-inhibitor, diuretics, hypokalemia, NSAIDS Urine electrolytes suggest prerenal Continue IV fluids. Change to IV bicarb CK level mildly Renal ultrasound- Bladder not well evaluated. Small volume free abdominopelvic fluid. Otherwise unremarkable renal sonogram findings. Nephrology consulted May need hemodialysis if kidneys to not recover or continue to worsen (5) Acute hyperkalemia: Code(s): E87.5 - Hyperkalemia Status: Acute Assessment and Plan: Potassium mildly elevated Change IV fluids to bicarb P.o. Lokelma Insulin + D50 (6) Metabolic acidosis: Code(s): E87.20 - Acidosis, unspecified Status: Acute Assessment and Plan: IV and p.o. bicarb ordered (7) Swelling of lower extremity: Code(s): M79.89 - Other specified soft tissue disorders Status: Acute Assessment and Plan: Likely volume overload from renal failure Echo ?1. Technically suboptimal study due to poor sonographic images. ? 2. Definity contrast administered improved wall motion interpretation. ? 3. Left ventricular chamber dimension is normal. ? 4. Left ventricular systolic function is normal, estimated at 60-65%. ? 5. The left ventricular diastolic function is normal. ? 6. E/e' 8 is minimally elevated. ? 7. The mitral valve has mildly calcified annulus. ? 8. No pulmonary hypertension, estimated pulmonary arterial systolic pressure is 37 mmHg. Check lower extremity venous Dopplers (8) Suspected malignant neoplasm: Code(s): R68.89 - Other general symptoms and signs Status: Acute Assessment and Plan: CT chest IMPRESSION: 1. Innumerable pulmonary nodules, enlarged mediastinal and supraclavicular lymph nodes and multiple hepatic nodules, all consistent with metastatic disease. Would recommend ultrasound-guided core needle biopsy of one of the right supra clavicular lymph nodes. 2. Small bilateral dependently layering pleural effusions. CT abdomen pelvis IMPRESSION: 1. Multiple pulmonary nodules suspicious for metastatic disease. Moderate bilateral pleural effusions. 2. Multiple hepatic masses, may represent primary and secondary lesions versus metastatic lesions alone. 3. Gallbladder hydrops with mild inflammatory change, correlate with biliary labs. 4. Retroperitoneal lymphadenopathy. 5. Inflammatory change versus edema in the lower abdominal pannus. 6. Lytic L1 and L3 lytic lesions may represent benign or malignant process. Patient has heavy history of smoking and lung primary is the most likely possibility He had colonoscopy in 11/24 in which he was found to have 1 polyp in ascending colon 2 polyp in sigmoid colon and 1 po
[2022-05-05] MEDS: INSULIN HUMAN REGULAR (*BKC) 100 UNITS/ML IV PUSH (09:45)
[2022-05-05] MEDS: SODIUM BICARBONATE TAB 650 MG TABLET PO ×2 (09:46→16:36)
[2022-05-05] MEDS: DEXTROSE 50% 25 GM/50 ML SYRINGE IV PUSH (09:46)
[2022-05-05] MEDS: SODIUM ZIRCONIUM CYCLOSILICATE 10 GM POWD.PACK PO ×2 (09:47→15:17)
[2022-05-05] MEDS: SODIUM BICARBONATE 8.4% 150 MEQ in WATER, STERILE FOR INJECTION 950 ML 100 MEQ IV CONT (09:47)
[2022-05-05] MEDS: ENOXAPARIN 30 MG/0.3 ML SYRINGE SUB-Q (09:47)
--- NOTE | 2022-05-05 11:32 | PM.IMPN ---
Progress Note: A&P Assessment and Plan (1) Sepsis: Code(s): A41.9 - Sepsis, unspecified organism Status: Acute Assessment and Plan: Patient presented with picture consistent of sepsis Likely source is UTI and possibly a multifocal pneumonia Patient appears to had viral infection earlier this month which could have been followed by bacterial secondary infection Blood and urine cultures have been sent and are pending Mycoplasma IgM, urine Legionella antigen, urine pneumococcal antigen -pending Influenza RSV and COVID were negative Continue empiric antibiotics in the form of vancomycin cefepime and azithromycin Patient on IV fluids which will be continued Patient has not required any vasopressors till now and lactic acid level has normalized (2) Multifocal pneumonia: Code(s): J18.9 - Pneumonia, unspecified organism Status: Acute Assessment and Plan: See above (3) Urinary tract infection: Code(s): N39.0 - Urinary tract infection, site not specified Status: Acute Assessment and Plan: See above (4) Acute kidney injury: Code(s): N17.9 - Acute kidney failure, unspecified Status: Acute Assessment and Plan: Patient presented with acute kidney injury which is likely multifactorial secondary to sepsis, POLI-inhibitor, diuretics, hypokalemia, NSAIDS Urine electrolytes suggest prerenal Continue IV fluids. Change to IV bicarb Renal ultrasound results noted Nephrology consulted May need hemodialysis if kidneys to not recover or continue to worsen (5) Acute hyperkalemia: Code(s): E87.5 - Hyperkalemia Status: Acute Assessment and Plan: Monitor (6) Metabolic acidosis: Code(s): E87.20 - Acidosis, unspecified Status: Acute Assessment and Plan: IV and p.o. bicarb ordered (7) Swelling of lower extremity: Code(s): M79.89 - Other specified soft tissue disorders Status: Acute Assessment and Plan: Likely volume overload from renal failure (8) Suspected malignant neoplasm: Code(s): R68.89 - Other general symptoms and signs Status: Acute Assessment and Plan: Question primary. Oncology consulted for further guidance and recommendations Will need biopsy Subjective Date/time seen: 05/05/22 11:32 Still complaining of shortness of breath and hypoxia. Patient is also extremely weak. Exam Narrative: General: Pt is alert awake and in NAD Lungs/Chest: Trachea central Clear BS B/L, No crackles or wheezing. Breath sound decreased on both bases Cardiac: RRR. Normal S1 S2. No murmurs Circulation: Pedal pulses are intact and symmetrical. Abdomen: Morbidly obese Normal bowel sounds.. Soft. NT. ND. Extremities: Bilateral mild pitting edema : Lan in place Neurologic: Follows commands. Moves all 4 extremities PERRL AO x3 Skin: No Rash Objective Data Vital Signs Vital Signs: Vital Signs - 24 hr 05/04/22 13:08 05/04/22 13:14 05/04/22 13:30 Temperature 96.8 F L Pulse Rate 105 H 98 Respiratory Rate 17 19 Blood Pressure 92/65 L Pulse Oximetry 97 Oxygen Delivery Room Air Room Air Oxygen Flow Rate 05/04/22 13:43 05/04/22 13:44 05/04/22 13:03 Temperature 97.9 F Pulse Rate 100 106 H Respiratory Rate 24 H 21 H Blood Pressure 92/65 L Pulse Oximetry 93 Oxygen Delivery Oxygen Flow Rate 05/04/22 13:24 05/04/22 13:31 05/04/22 15:56 Temperature 97.9 F Pulse Rate 100 98 95 Respiratory Rate 14 15 20 Blood Pressure 82/50 L 86/46 L 80/46 L Pulse Oximetry 96 96 98 Oxygen Delivery Room Air Oxygen Flow Rate 05/04/22 16:02 05/04/22 16:02 05/04/22 13:32 Temperature Pulse Rate 91 99 Respiratory Rate 18 Blood Pressure Pulse Oximetry 96 93 Oxygen Delivery Room Air Oxygen Flow Rate 05/04/22 13:46 05/04/22 14:01 05/04/22 14:18 Temperature Pulse Rate 100 98 99 Respiratory Rate 16 18 24 H Blood Pressure 86/34 L 79/61 L
--- NOTE | 2022-05-05 13:03 | PDONCCN ---
HPI - Date of Consult Date/Time: 05/05/22 13:03 Requesting Physician: Giovani Mcpherson MD Primary Care Provider: Ledy Musa PAC - Consult Narrative Reason for consult: Metastatic cancer. Narrative: Ramos Tong is a 51 year old male with history of smoking for 17 years duration about 1-2 pack per day came into hospital with shortness of breath. He was tested positive for influenza at the beginning of month. He was treated with steroids inhalers and antibiotic with some improvement. Due to persistent tiredness fatigue and weight loss along with shortness of breath he came into the hospital. CT scan chest was ordered that showed multiple pulmonary nodules liver masses lymphadenopathy and lytic bone lesion consistent with metastatic disease. He denies any previous history of malignancy. He has lost 20 lb weight since April 08. Review of Systems - Review of Systems All systems reviewed & are unremarkable except as noted in HPI and [facility] Medical History: Medical History (Last Reviewed 05/05/22 @ 09:12 by Andrés Grigsby MD) Hypertension Tobacco dependence Surgical History: Surgical History (Last Reviewed 05/05/22 @ 09:12 by Andrés Grigsby MD) History of colonoscopy with polypectomy Onset Date: 11/2021 Tubular adenoma x2 (ascending and sigmoid). Hyperplastic polyp (rectal). History of incision and drainage Onset Date: 08/2016 Left palm and middle finger for abscess with associated cellulitis due to dog bite. Family History: Family History (Last Reviewed 05/05/22 @ 09:12 by Andrés Grigsby MD) Other Family history of arthritis Hypertension - Social History Social History: Social History (Last Reviewed 05/05/22 @ 09:12 by Andrés Grigsby MD) Alcohol Use: Alcohol intake: current Drinks per week: 3 Substance Use: Substance use: current Substance use type: marijuana Others: Spiritual care concerns: No Living Arrangements: Living arrangements: alone Smoking Status: Smoking status: Light tobacco smoker Tobacco type: cigarettes Smoking Pack-years: Smoking packs per day: 1 Smoking cigarettes per day: 20.0 Years smoked: 34 Smoking pack-years: 34.00 Social Determinants of Health: Has the Lack of Transportation Kept You From Medical Appointments or From Getting Medications?: No Within the Past 12 Months, Were You Worried Whether Your Food Would Run Out Before You Got Money to Buy More?: Never True What is Your Housing Situation Today?: I Have Housing Are You Worried That in the Next 2 Months, You May Not Have Your Own Housing to Live In?: No Do You Have Trouble Paying Your Heating Or Electricity Bill?: No Do You Have Trouble Paying For Medicines?: No Are You Currently Unemployed and Looking for Work?: No Highest Level of Education Completed: High School Diploma/GED Do You Have Trouble With Childcare or the Care of a Family Member?: No Exam - Vital Signs Vital Signs - 24 hr 05/04/22 13:08 05/04/22 13:14 05/04/22 13:30 Temperature 36.0 C L Pulse Rate 105 H 98 Respiratory Rate 17 19 Blood Pressure 92/65 L Pulse Oximetry 97 Oxygen Delivery Room Air Room Air Oxygen Flow Rate 05/04/22 13:43 05/04/22 13:44 05/04/22 13:24 Temperature 36.6 C Pulse Rate 100 100 Respiratory Rate 24 H 14 Blood Pressure 82/50 L Pulse Oximetry 96 Oxygen Delivery Oxygen Flow Rate 05/04/22 13:31 05/04/22 15:56 05/04/22 16:02 Temperature 36.6 C Pulse Rate 98 95 Respiratory Rate 15 20 Blood Pressure 86/46 L 80/46 L Pulse Oximetry 96 98 96 Oxygen Delivery Room Air Room Air Oxygen Flow Rate 05/04/22 16:02 05/04/22 13:32 05/04/22 13:46 Temperature Pulse Rate 91 99 100 Respiratory Rate 18 16 Blood Pressure 86/34 L Pulse Oximetry 93 95 Oxygen Delivery Oxygen Flow Rate 05/04/22 14:01 05/04/22 14:18 05/04/22 14:20 Temperature
[2022-05-05] MEDS: ONDANSETRON INJ 4 MG/2 ML VIAL IV PUSH (14:11)
[2022-05-05 19:29] LABS: Anion Gap 10 mmol/L (8-16); Blood Urea Nitrogen 97 mg/dL (9-20); Calcium 6.8 mg/dL (8.4-10.2); Carbon Dioxide 22 mmol/L (22-30); Chloride 93 mmol/L (98-107); Estimated CRCL calculation 28 ml/min; Estimated Glomerular Filt Rate 15; Glucose 136 mg/dL (65-110); Potassium 4.4 mmol/L (3.4-5.0); Sodium 125 mmol/L (137-145)
[2022-05-06] VITALS (12 sets, daily range): BP systolic 87–99; BP diastolic 49–81; PULSE 86–109; RESP 14–20; TEMP 36.6–36.9; O2SAT 96–99
[2022-05-06] MEDS: SODIUM BICARBONATE 8.4% 150 MEQ in WATER, STERILE FOR INJECTION 950 ML 100 MEQ IV CONT ×3 (00:19→22:43)
[2022-05-06 04:11] LABS: Hematocrit 40.1 % (42.0-52.0); Hemoglobin 13.5 g/dL (14.0-18.0); Mean Corpuscular HGB Conc 33.7 g/dl (32-36); Mean Corpuscular Hemoglobin 33.1 pg (26-34); Mean Corpuscular Volume 98.3 fl (80-100); Mean Platelet Volume 10.2 fl (7.4-10.4); Platelet Count Result 206 k/mm3 (150-375); Red Blood Count 4.08 M/mm3 (4.6-6.20); Red Cell Distribution Width 14.6 % (11.5-14.5); White Blood Count 29.8 K/mm3 (4.5-10.0)
[2022-05-06 04:49] LABS: Acanthocytes 2+ (NORMAL); Band Neutrophils Percent 6 % (0-6); Lymphocytes Absolute Manual 1.78 K/mm3 (1.1-4.5); Monocytes Absolute Manual 0.89 K/mm3 (0.1-0.90); Monocytes Percent Manual 3 % (3-9); Neutrophils Absolute Manual 27.11 K/mm3 (1.3-6.7); Neutrophils Percent Manual 85 % (46-73); Platelet Estimate Adequate (Adequate); Schistocytes None Seen (NORMAL); Total Cells Counted 100
[2022-05-06 06:37] LABS: Alanine Aminotransferase 49 U/L (6-50); Albumin Level 2.9 g/dL (3.5-5.1); Alkaline Phosphatase 279 U/L (38-126); Anion Gap 12 mmol/L (8-16); Aspartate Amino Transferase 73 U/L (17-59); Bilirubin,Total 0.7 mg/dL (0.2-1.3); Blood Urea Nitrogen 101 mg/dL (9-20); Calcium 6.7 mg/dL (8.4-10.2); Carbon Dioxide 20 mmol/L (22-30); Chloride 93 mmol/L (98-107); Estimated CRCL calculation 33 ml/min; Estimated Glomerular Filt Rate 18; Glucose 121 mg/dL (65-110); Magnesium 3.2 mg/dL (1.6-2.3); Phosphorus 9.4 mg/dL (2.5-4.5); Potassium 4.3 mmol/L (3.4-5.0); Sodium 125 mmol/L (137-145)
[2022-05-06] MEDS: SODIUM BICARBONATE TAB 650 MG TABLET PO ×2 (10:38→16:12)
[2022-05-06] MEDS: HYDROcodone/acetaminophen (*CRX) 5-325 MG TABLET 1 TAB PO (11:28)
--- NOTE | 2022-05-06 13:21 | PM.PNNEP ---
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 AGENT infection/sepsis evaluation to date: urine electrolytes prerenal urine eosinophils negative renal ultrasound without obstruction CPK mildly elevated but coming down continue IVF resuscitation as tolerated maintain blood pressure/MAP remains at risk for needing TREE MARKER/dialysis follow repeat labs and UOP (2) Septic shock: Code(s): A41.9 - Sepsis, unspecified organism; R65.21 - Severe sepsis with septic shock Status: Acute Assessment and Plan: as evidenced by presentation with low BP, lactic acidosis, tachycardia, elevated WBC and WILLIAN thought to be secondary to pneumonia +/- UTI follow culture data - blood/urine culture negative to date follow hemodynamics (3) Multifocal pneumonia: Code(s): J18.9 - Pneumonia, unspecified organism Status: Acute Assessment and Plan: as noted by admission imaging CT of chest results noted -- innumerable pulmonary nodules, multiple hepatic nodules, and lymphadenopathy suspicious for metastatic disease suspect will tissues biopsy for a definitive diagnosis follow culture data on antibiotics (4) Metabolic acidosis: Code(s): E87.20 - Acidosis, unspecified Status: Acute Assessment and Plan: secondary to lactic acidosis from sepsis and WILLIAN improvement noted with bicarb IVFs follow trend of lactic acid (5) Hyponatremia: Code(s): E87.1 - Hypo-osmolality and hyponatremia Status: Acute Assessment and Plan: partly related to WILLIAN however, if malignancy is present, could be secondary to this as well follow trend of sodium (6) Suspected malignant neoplasm: Code(s): R68.89 - Other general symptoms and signs Status: Acute Assessment and Plan: suspicion based on CT chest findings Oncology recommendations noted biopsy/tissues diagnosis need (liver mass versus lymph node?) (7) Elevated LFTs: Code(s): R79.89 - Other specified abnormal findings of blood chemistry Status: Acute Assessment and Plan: presumably related to shock/low BP however, cannot deny possibility that it is related to liver masses follow trend Will continue to follow. Subjective Date/time seen: 05/06/22 13:21 Blood pressure/hemodynamics relatively stable without the need for vasopressor therapy; switched to bicarb fluids yesterday with improvement in acidosis and potassium levels; good urine output noted in the last 24 hours with improvement in renal function as well. Exam Narrative: General: WD/WN malein NAD Heart: normal S1 and S2; no rub Lungs: coarse and decreased at bases Abdomen: soft, nontender, nondistended, positive bowel sounds Extremities: no cyanosis or clubbing; mild edema Skin: warm and dry Objective Data Vital Signs Vital Signs: Vital Signs Temp Pulse Resp BP Pulse Ox O2 Del Method O2 Flow Rate 05/06/22 11:00 93 14 89/66 L 97 05/06/22 11:45 98 F 93 20 89/66 L 99 05/06/22 08:00 92 05/06/22 07:51 Room Air 05/06/22 04:00 86 05/06/22 03:42 90 18 99/81 L 97 05/06/22 00:31 92 15 99/68 L 97 05/06/22 00:00 109 H 05/05/22 22:00 93 05/05/22 20:00 96 16 96 Nasal Cannula 3 05/05/22 20:00 99 05/05/22 19:00 98.3 F 97 17 117/62 96 05/05/22 18:00 97 17 117/62 96 05/05/22 18:00 97 05/05/22 16:00 98 22 H 91 Room Air 05/05/22 16:00 98 F 98 22 H 98/66 L 91 05/05/22 16:00 98 Intake/Output Intake/Output: Intake & Output 05/03/22 05/04/22 05/05/22 05/06/22 23:59 23:59 23:59 23:59 Intake Total 3800 2550 1900 Output Total
--- NOTE | 2022-05-06 13:21 | P.PNNP_ITS ---
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 * evaluation to date: * urine electrolytes prerenal * urine eosinophils negative * renal ultrasound without obstruction * CPK mildly elevated but coming down * continue IVF resuscitation as tolerated * maintain blood pressure/MAP * remains at risk for needing MONOTYPE MACHINIST/dialysis * follow repeat labs and UOP (2) Septic shock: Code(s): A41.9 - Sepsis, unspecified organism; R65.21 - Severe sepsis with septic shock Status: Acute Assessment and Plan: * as evidenced by presentation with low BP, lactic acidosis, tachycardia, elevated WBC and WILLIAN * thought to be secondary to pneumonia +/- UTI * follow culture data - blood/urine culture negative to date * follow hemodynamics (3) Multifocal pneumonia: Code(s): J18.9 - Pneumonia, unspecified organism Status: Acute Assessment and Plan: * as noted by admission imaging * CT of chest results noted -- innumerable pulmonary nodules, multiple hepatic nodules, and lymphadenopathy suspicious for metastatic disease * suspect will tissues biopsy for a definitive diagnosis * follow culture data * on antibiotics (4) Metabolic acidosis: Code(s): E87.20 - Acidosis, unspecified Status: Acute Assessment and Plan: * secondary to lactic acidosis from sepsis and WILLIAN * improvement noted with bicarb IVFs * follow trend of lactic acid (5) Hyponatremia: Code(s): E87.1 - Hypo-osmolality and hyponatremia Status: Acute Assessment and Plan: * partly related to WILLIAN * however, if malignancy is present, could be secondary to this as well * follow trend of sodium (6) Suspected malignant neoplasm: Code(s): R68.89 - Other general symptoms and signs Status: Acute Assessment and Plan: * suspicion based on CT chest findings * Oncology recommendations noted * biopsy/tissues diagnosis need (liver mass versus lymph node?) (7) Elevated LFTs: Code(s): R79.89 - Other specified abnormal findings of blood chemistry Status: Acute Assessment and Plan: * presumably related to shock/low BP * however, cannot deny possibility that it is related to liver masses * follow trend Will continue to follow. Subjective Date/time seen: 05/06/22 13:21 Blood pressure/hemodynamics relatively stable without the need for vasopressor therapy; switched to bicarb fluids yesterday with improvement in acidosis and potassium levels; good urine output noted in the last 24 hours with improvement in renal function as well. Exam Narrative: General: WD/WN malein NAD Heart: normal S1 and S2; no rub Lungs: coarse and decreased at bases Abdomen: soft, nontender, nondistended, positive bowel sounds Extremities: no cyanosis or clubbing; mild edema Skin: warm and dry Objective Data Vital Signs Vital Signs: Vital Signs Temp Pulse Resp BP Pulse Ox O2 Del Method O2 Flow Rate 05/06/22 11:00 93 14 89/66 L 97 05/06/22 11:45 98 F 93 20 89/66 L 99 05/06/22 08:00 92 05/06/22 07:51
--- NOTE | 2022-05-06 16:27 | PM.IMPN ---
Progress Note: A&P Assessment and Plan (1) Sepsis: Code(s): A41.9 - Sepsis, unspecified organism Status: Acute Assessment and Plan: Patient presented with picture consistent of sepsis Likely source is UTI and possibly a multifocal pneumonia Patient appears to had viral infection earlier this month which could have been followed by bacterial secondary infection Blood and urine cultures have been sent and are pending Mycoplasma IgM, urine Legionella antigen, urine pneumococcal antigen -pending Influenza RSV and COVID were negative Continue empiric antibiotics in the form of vancomycin cefepime and azithromycin Patient on IV fluids which will be continued Patient has not required any vasopressors till now and lactic acid level has normalized 05/06/2022 Interval history: patient presented with shortness of breath is found to have a multifocal pneumonia serologies pending however procalcitonin is elevated and patient is being treated Cefepime, and vancomycin blood cultures are pending, patient is also found to multiple pulmonary nodules and metastasis to liver and bone to further evaluate patient had a biopsy of supraclavicular lymph node pending pathology report, upon arrival patient had a significant elevated BUN and creatinine seen by nephrology and workup is in progress, patient remains clinically stable will continue to monitor, patient's parents are present in room. (2) Multifocal pneumonia: Code(s): J18.9 - Pneumonia, unspecified organism Status: Acute Assessment and Plan: See above (3) Urinary tract infection: Code(s): N39.0 - Urinary tract infection, site not specified Status: Acute Assessment and Plan: See above (4) Acute kidney injury: Code(s): N17.9 - Acute kidney failure, unspecified Status: Acute Assessment and Plan: Patient presented with acute kidney injury which is likely multifactorial secondary to sepsis, POLI-inhibitor, diuretics, hypokalemia, NSAIDS Urine electrolytes suggest prerenal Continue IV fluids. Change to IV bicarb Renal ultrasound results noted Nephrology consulted May need hemodialysis if kidneys to not recover or continue to worsen (5) Acute hyperkalemia: Code(s): E87.5 - Hyperkalemia Status: Acute Assessment and Plan: Monitor (6) Metabolic acidosis: Code(s): E87.20 - Acidosis, unspecified Status: Acute Assessment and Plan: IV and p.o. bicarb ordered (7) Swelling of lower extremity: Code(s): M79.89 - Other specified soft tissue disorders Status: Acute Assessment and Plan: Likely volume overload from renal failure (8) Suspected malignant neoplasm: Code(s): R68.89 - Other general symptoms and signs Status: Acute Assessment and Plan: Question primary. Oncology consulted for further guidance and recommendations Will need biopsy Subjective Date/time seen: 05/06/22 16:27 Patient presented with picture consistent of sepsis Likely source is UTI and possibly a multifocal pneumonia Patient appears to had viral infection earlier this month which could have been followed by bacterial secondary infection Blood and urine cultures have been sent and are pending Mycoplasma IgM, urine Legionella antigen, urine pneumococcal antigen -pending Influenza RSV and COVID were negative Continue empiric antibiotics in the form of vancomycin cefepime and azithromycin Patient on IV fluids which will be continued Patient has not required any vasopressors till now and lactic acid level has normalized 05/06/2022 Interval history: patient presented with shortness of breath is found to have a multifocal pneumonia serologies pending however procalcitonin is elevated and patient is being treated Cefepime, and vancomycin blood cultures are pending, patient is also found to multiple pulmonary nodules and metastasis to liver and bone to further evaluate patient had a biopsy of s
[2022-05-07] VITALS (10 sets, daily range): BP systolic 61–101; BP diastolic 39–59; PULSE 94–105; RESP 18–22; TEMP 36.6–37.1; O2SAT 90–97
[2022-05-07 04:22] LABS: Hematocrit 39.5 % (42.0-52.0); Hemoglobin 13.1 g/dL (14.0-18.0); Mean Corpuscular HGB Conc 33.2 g/dl (32-36); Mean Corpuscular Volume 96.6 fl (80-100); Mean Platelet Volume 10.7 fl (7.4-10.4); Platelet Count Result 195 k/mm3 (150-375); Red Blood Count 4.09 M/mm3 (4.6-6.20); Red Cell Distribution Width 14.2 % (11.5-14.5); White Blood Count 25.6 K/mm3 (4.5-10.0)
[2022-05-07 05:19] LABS: Alanine Aminotransferase 42 U/L (6-50); Albumin Level 2.5 g/dL (3.5-5.1); Alkaline Phosphatase 265 U/L (38-126); Anion Gap 10 mmol/L (8-16); Aspartate Amino Transferase 52 U/L (17-59); Bilirubin,Total 0.7 mg/dL (0.2-1.3); Blood Urea Nitrogen 113 mg/dL (9-20); Calcium 6.2 mg/dL (8.4-10.2); Carbon Dioxide 26 mmol/L (22-30); Chloride 92 mmol/L (98-107); Estimated CRCL calculation 40 ml/min; Estimated Glomerular Filt Rate 22; Glucose 120 mg/dL (65-110); Magnesium 3.2 mg/dL (1.6-2.3); Potassium 3.9 mmol/L (3.4-5.0); Sodium 128 mmol/L (137-145)
[2022-05-07] MEDS: SODIUM BICARBONATE TAB 650 MG TABLET PO ×2 (07:54→17:21)
[2022-05-07] MEDS: ENOXAPARIN 30 MG/0.3 ML SYRINGE SUB-Q (07:54)
[2022-05-07] MEDS: ONDANSETRON INJ 4 MG/2 ML VIAL IV PUSH (10:02)
[2022-05-07] MEDS: SODIUM BICARBONATE 8.4% 150 MEQ in WATER, STERILE FOR INJECTION 950 ML 100 MEQ IV CONT (11:46)
--- NOTE | 2022-05-07 12:27 | PM.PNNEP ---
Progress Note: A&P Assessment and Plan (1) Acute kidney injury: Code(s): N17.9 - Acute kidney failure, unspecified Status: Acute Assessment and Plan: improvement noted likely ATN with multifactorial etiology: prerenal factors hypotension/shock POLI-I/diuretic use SUPER[employer]OR [employer] infection/sepsis evaluation to date: urine electrolytes prerenal urine eosinophils negative renal ultrasound without obstruction CPK mildly elevated but coming down continue IVF resuscitation as tolerated maintain blood pressure/MAP follow repeat labs and UOP (2) Septic shock: Code(s): A41.9 - Sepsis, unspecified organism; R65.21 - Severe sepsis with septic shock Status: Acute Assessment and Plan: as evidenced by presentation with low BP, lactic acidosis, tachycardia, elevated WBC and WILLIAN thought to be secondary to pneumonia +/- UTI follow culture data - blood/urine culture negative to date follow hemodynamics will try to wean off IV fluids given concerns for pulmonary edema consider midodrine support has not required vasopressor support (3) Multifocal pneumonia: Code(s): J18.9 - Pneumonia, unspecified organism Status: Acute Assessment and Plan: as noted by admission imaging CT of chest results noted -- innumerable pulmonary nodules, multiple hepatic nodules, and lymphadenopathy suspicious for metastatic disease suspect will tissues biopsy for a definitive diagnosis follow culture data on antibiotics (4) Metabolic acidosis: Code(s): E87.20 - Acidosis, unspecified Status: Acute Assessment and Plan: secondary to lactic acidosis from sepsis and WILLIAN improvement noted with bicarb IVFs recheck labs this afternoon and may wean off bicarb fluids follow trend of lactic acid (5) Hyponatremia: Code(s): E87.1 - Hypo-osmolality and hyponatremia Status: Acute Assessment and Plan: partly related to WILLIAN however, if malignancy is present, could be secondary to this as well follow trend of sodium (6) Suspected malignant neoplasm: Code(s): R68.89 - Other general symptoms and signs Status: Acute Assessment and Plan: suspicion based on CT chest findings Oncology recommendations noted s/p biopsy of subclavian lymph node (7) Elevated LFTs: Code(s): R79.89 - Other specified abnormal findings of blood chemistry Status: Acute Assessment and Plan: presumably related to shock/low BP however, cannot deny possibility that it is related to liver masses follow trend Will continue to follow. Subjective Date/time seen: 05/07/22 12:27 S/P ultrasound guided lymph node biopsy yesterday -- tolerated procedure reasonably well; having issues with abdominal discomfort and feeling full with KUB not demonstrating any signficant findings but was started on a bowel regimen; BP still somewhat on the soft side event with IVFs. Exam Narrative: General: WD/WN male in NAD Heart: normal S1 and S2; no rub Lungs: coarse and decreased at bases Abdomen: soft, nontender, nondistended, positive bowel sounds Extremities: no cyanosis or clubbing; mild edema Skin: warm and intact Objective Data Vital Signs Vital Signs: Vital Signs Temp Pulse Resp BP Pulse Ox O2 Del Method 05/07/22 12:00 99 05/07/22 08:00 96 Room Air 05/07/22 08:00 96 05/07/22 08:00 98.6 F 95 18 101/58 L 96 05/07/22 07:00 98.7 F 104 H 22 H 101/58 L 97 05/07/22 04:00 105 H 05/07/22 00:00 96 05/06/22 23:00 98.5 F 96 20 87/49 L 96 05/06/22 20:00 98 05/06/22 16:00 91 05/06/22 15:53 93 20 98/57 L Intake/Output Intake/Output: Intake & Output 05/04/22 05/05/22 05/06/22 05/07/22 23:59 23:59 23:59 23:59 Intake Total 3800 3100 4150 1200 Output Total 2300 1100 600 Balance 3800 800 3050 600 Meds/Results Medications: Active Medications
--- NOTE | 2022-05-07 12:27 | P.PNNP_ITS ---
Progress Note: A&P Assessment and Plan (1) Acute kidney injury: Code(s): N17.9 - Acute kidney failure, unspecified Status: Acute Assessment and Plan: * improvement noted * likely ATN with multifactorial etiology: * prerenal factors * hypotension/shock * POLI-I/diuretic use [employer] * infection/sepsis * evaluation to date: * urine electrolytes prerenal * urine eosinophils negative * renal ultrasound without obstruction * CPK mildly elevated but coming down * continue IVF resuscitation as tolerated * maintain blood pressure/MAP * follow repeat labs and UOP (2) Septic shock: Code(s): A41.9 - Sepsis, unspecified organism; R65.21 - Severe sepsis with septic shock Status: Acute Assessment and Plan: * as evidenced by presentation with low BP, lactic acidosis, tachycardia, elevated WBC and WILLIAN * thought to be secondary to pneumonia +/- UTI * follow culture data - blood/urine culture negative to date * follow hemodynamics * will try to wean off IV fluids given concerns for pulmonary edema * consider midodrine support * has not required vasopressor support (3) Multifocal pneumonia: Code(s): J18.9 - Pneumonia, unspecified organism Status: Acute Assessment and Plan: * as noted by admission imaging * CT of chest results noted -- innumerable pulmonary nodules, multiple hepatic nodules, and lymphadenopathy suspicious for metastatic disease * suspect will tissues biopsy for a definitive diagnosis * follow culture data * on antibiotics (4) Metabolic acidosis: Code(s): E87.20 - Acidosis, unspecified Status: Acute Assessment and Plan: * secondary to lactic acidosis from sepsis and WILLIAN * improvement noted with bicarb IVFs * recheck labs this afternoon and may wean off bicarb fluids * follow trend of lactic acid (5) Hyponatremia: Code(s): E87.1 - Hypo-osmolality and hyponatremia Status: Acute Assessment and Plan: * partly related to WILLIAN * however, if malignancy is present, could be secondary to this as well * follow trend of sodium (6) Suspected malignant neoplasm: Code(s): R68.89 - Other general symptoms and signs Status: Acute Assessment and Plan: * suspicion based on CT chest findings * Oncology recommendations noted * s/p biopsy of subclavian lymph node (7) Elevated LFTs: Code(s): R79.89 - Other specified abnormal findings of blood chemistry Status: Acute Assessment and Plan: * presumably related to shock/low BP * however, cannot deny possibility that it is related to liver masses * follow trend Will continue to follow. Subjective Date/time seen: 05/07/22 12:27 S/P ultrasound guided lymph node biopsy yesterday -- tolerated procedure reasonably well; having issues with abdominal discomfort and feeling full with KUB not demonstrating any signficant findings but was started on a bowel regimen; BP still somewhat on the soft side event with IVFs. Exam Narrative: General: WD/WN male in NAD Heart: normal S1 and S2; no rub Lungs: coarse and decreased at bases Abdomen: soft, nontender, nondistended, positive bowel sounds Extremities: no cyanosis or clubbing; mild edema Skin: warm and intact Objective Data Vital Signs Vital Signs: Vital Signs Temp Pulse Resp BP Pulse Ox O2 Del Method 02
[2022-05-07] MEDS: polyethylene glycoL 3350 17 GM POWD.PACK PO (13:44)
[2022-05-07 13:51] LABS: Vancomycin Trough 25.4 ug/mL (10.0-20.0)
[2022-05-07 15:57] LABS: Albumin Level 2.8 g/dL (3.5-5.1); Anion Gap 12 mmol/L (8-16); Blood Urea Nitrogen 113 mg/dL (9-20); Calcium 6.6 mg/dL (8.4-10.2); Carbon Dioxide 28 mmol/L (22-30); Chloride 87 mmol/L (98-107); Estimated CRCL calculation 40 ml/min; Estimated Glomerular Filt Rate 22; Glucose 118 mg/dL (65-110); Phosphorus 7.9 mg/dL (2.5-4.5); Potassium 4.2 mmol/L (3.4-5.0); Sodium 127 mmol/L (137-145)
[2022-05-07] MEDS: DEXTROSE 5%/0.9% SOD CHL 1,000 ML 50 ML IV CONT (17:21)
[2022-05-07] MEDS: MIDODRINE HCL 2.5 MG TABLET 5 MG PO (17:21)
--- NOTE | 2022-05-07 17:21 | PM.IMPN ---
Progress Note: A&P Assessment and Plan (1) Sepsis: Code(s): A41.9 - Sepsis, unspecified organism Status: Acute Assessment and Plan: Patient presented with picture consistent of sepsis Likely source is UTI and possibly a multifocal pneumonia Patient appears to had viral infection earlier this month which could have been followed by bacterial secondary infection Blood and urine cultures have been sent and are pending Mycoplasma IgM, urine Legionella antigen, urine pneumococcal antigen -pending Influenza RSV and COVID were negative Continue empiric antibiotics in the form of vancomycin cefepime and azithromycin Patient on IV fluids which will be continued Patient has not required any vasopressors till now and lactic acid level has normalized 05/07/2022 Interval history: patient presented with shortness of breath is found to have a multifocal pneumonia serologies pending however procalcitonin is elevated and patient is being treated Cefepime, and vancomycin blood cultures so far no growth, patient is also found to have multiple pulmonary nodules and metastasis to liver and bone to further evaluate on 05/06 patient had a biopsy of supraclavicular lymph node pending pathology report, upon arrival patient had a significant elevated BUN and creatinine seen by nephrology and workup is in progress, today patient complains of bloating abdominal and no BM for several days, KUB did not show any obstruction, will start the patient on Colace and MiraLax, patient remains clinically stable will continue to monitor, patient's parents are present in room. (2) Multifocal pneumonia: Code(s): J18.9 - Pneumonia, unspecified organism Status: Acute Assessment and Plan: See above (3) Urinary tract infection: Code(s): N39.0 - Urinary tract infection, site not specified Status: Acute Assessment and Plan: See above (4) Acute kidney injury: Code(s): N17.9 - Acute kidney failure, unspecified Status: Acute Assessment and Plan: Patient presented with acute kidney injury which is likely multifactorial secondary to sepsis, POLI-inhibitor, diuretics, hypokalemia, NSAIDS Urine electrolytes suggest prerenal Continue IV fluids. Change to IV bicarb Renal ultrasound results noted Nephrology consulted May need hemodialysis if kidneys to not recover or continue to worsen (5) Acute hyperkalemia: Code(s): E87.5 - Hyperkalemia Status: Acute Assessment and Plan: Monitor (6) Metabolic acidosis: Code(s): E87.20 - Acidosis, unspecified Status: Acute Assessment and Plan: IV and p.o. bicarb ordered (7) Swelling of lower extremity: Code(s): M79.89 - Other specified soft tissue disorders Status: Acute Assessment and Plan: Likely volume overload from renal failure (8) Suspected malignant neoplasm: Code(s): R68.89 - Other general symptoms and signs Status: Acute Assessment and Plan: Question primary. Oncology consulted for further guidance and recommendations Will need biopsy Subjective Date/time seen: 05/07/22 17:21 05/07/2022 Interval history: patient presented with shortness of breath is found to have a multifocal pneumonia serologies pending however procalcitonin is elevated and patient is being treated Cefepime, and vancomycin blood cultures so far no growth, patient is also found to have multiple pulmonary nodules and metastasis to liver and bone to further evaluate on 05/06 patient had a biopsy of supraclavicular lymph node pending pathology report, upon arrival patient had a significant elevated BUN and creatinine seen by nephrology and workup is in progress, today patient complains of bloating abdominal and no BM for several days, KUB did not show any obstruction, will start the patient on Colace and MiraLax, patient remains clinically stable will continue to monitor, patient's parents are present in room.
[2022-05-07] MEDS: ACETAMINOPHEN 325 MG TABLET 650 MG PO (18:27)
[2022-05-07 19:45] LABS: Mycoplasma IgM Antibody Titer 85 U/mL (<770)
[2022-05-07] MEDS: DOCUSATE SODIUM 100 MG CAPSULE PO (20:24)
[2022-05-07 22:30] LABS: Pneumococcal Antigen Urine Not Detected (Not Detected)
[2022-05-08] VITALS (111 sets, daily range): BP systolic 64–121; BP diastolic 41–104; PULSE 92–124; RESP 12–29; TEMP 36–36.9; O2SAT 88–99
[2022-05-08 04:13] LABS: Hematocrit 39.2 % (42.0-52.0); Hemoglobin 13.1 g/dL (14.0-18.0); Mean Corpuscular HGB Conc 33.4 g/dl (32-36); Mean Corpuscular Hemoglobin 32.4 pg (26-34); Mean Platelet Volume 10.8 fl (7.4-10.4); Platelet Count Result 205 k/mm3 (150-375); Red Blood Count 4.04 M/mm3 (4.6-6.20); Red Cell Distribution Width 14.3 % (11.5-14.5)
[2022-05-08 04:38] LABS: Alanine Aminotransferase 42 U/L (6-50); Albumin Level 2.5 g/dL (3.5-5.1); Alkaline Phosphatase 258 U/L (38-126); Anion Gap 10 mmol/L (8-16); Aspartate Amino Transferase 47 U/L (17-59); Bilirubin,Total 0.7 mg/dL (0.2-1.3); Blood Urea Nitrogen 118 mg/dL (9-20); Calcium 6.4 mg/dL (8.4-10.2); Carbon Dioxide 26 mmol/L (22-30); Chloride 90 mmol/L (98-107); Estimated CRCL calculation 39 ml/min; Estimated Glomerular Filt Rate 21; Glucose 177 mg/dL (65-110); Magnesium 3.3 mg/dL (1.6-2.3); Phosphorus 8.1 mg/dL (2.5-4.5); Sodium 126 mmol/L (137-145)
[2022-05-08] MEDS: MIDODRINE HCL 2.5 MG TABLET 5 MG PO (07:56)
[2022-05-08] MEDS: ENOXAPARIN 30 MG/0.3 ML SYRINGE SUB-Q (07:57)
[2022-05-08] MEDS: SODIUM BICARBONATE TAB 650 MG TABLET PO ×2 (07:57→19:18)
[2022-05-08] MEDS: AZITHROMYCIN 250 MG TABLET 500 MG PO (07:58)
[2022-05-08] MEDS: ONDANSETRON INJ 4 MG/2 ML VIAL IV PUSH (08:03)
[2022-05-08] MEDS: SIMETHICONE 125 MG CHEW TAB PO (09:44)
[2022-05-08] MEDS: METOCLOPRAMIDE HCL INJ 10 MG/2 ML VIAL IV PUSH ×2 (09:44→19:18)
[2022-05-08] MEDS: HYDROcodone/acetaminophen (*CRX) 5-325 MG TABLET 1 TAB PO ×2 (09:48→20:53)
[2022-05-08] MEDS: BISACODYL 10 MG SUPPOSITORY RECTAL (09:49)
[2022-05-08] MEDS: DOCUSATE SODIUM 100 MG CAPSULE PO ×2 (09:50→20:53)
[2022-05-08] MEDS: polyethylene glycoL 3350 17 GM POWD.PACK PO (11:00)
--- NOTE | 2022-05-08 11:37 | P.PNNP_ITS ---
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 * infection/sepsis * evaluation to date: * urine electrolytes prerenal * urine eosinophils negative * renal ultrasound without obstruction * CPK mildly elevated but coming down * holding further IVFs due to CXR findings and concerns for volume overload * maintain blood pressure/MAP * symptoms today and yesterday may be an early uremic symptoms * unfortunately, the only true way to know if uremia is present is to treat with dialysis and reassess * follow repeat labs and UOP (2) Septic shock: Code(s): A41.9 - Sepsis, unspecified organism; R65.21 - Severe sepsis with septic shock Status: Acute Assessment and Plan: * as evidenced by presentation with low BP, lactic acidosis, tachycardia, elevated WBC and WILLIAN * thought to be secondary to pneumonia +/- UTI * follow culture data - blood/urine culture negative to date * follow hemodynamics * off IVFs due to concerns of pulmonary edema * on midodrine currently * check cortisol level * consider adding IV albumin * has not required vasopressor support as of yet (3) Multifocal pneumonia: Code(s): J18.9 - Pneumonia, unspecified organism Status: Acute Assessment and Plan: * as noted by admission imaging * CT of chest results noted -- innumerable pulmonary nodules, multiple hepatic nodules, and lymphadenopathy suspicious for metastatic disease * suspect will tissues biopsy for a definitive diagnosis * follow culture data * on antibiotics (4) Metabolic acidosis: Code(s): E87.20 - Acidosis, unspecified Status: Acute Assessment and Plan: * secondary to lactic acidosis from sepsis and WILLIAN * improvement noted with bicarb IVFs * on oral sodium bicarbonate * follow trend of lactic acid (5) Hyponatremia: Code(s): E87.1 - Hypo-osmolality and hyponatremia Status: Acute Assessment and Plan: * partly related to WILLIAN * however, if malignancy is present, could be secondary to this as well * follow trend of sodium (6) Suspected malignant neoplasm: Code(s): R68.89 - Other general symptoms and signs Status: Acute Assessment and Plan: * suspicion based on CT chest findings * Oncology recommendations noted * s/p biopsy of subclavian lymph node (7) Elevated LFTs: Code(s): R79.89 - Other specified abnormal findings of blood chemistry Status: Acute Assessment and Plan: * presumably related to shock/low BP * however, cannot deny possibility that it is related to liver masses * follow trend Long and extensive discussion (> 20 minutes) with patient and his parents at bedside regarding his renal dysfunction and the possible etiology of some of his symptoms being related to uremia. They are willing to do dialysis if necessary. Will continue to follow. Subjective Date/time seen: 05/08/22 11:37 Blood pressure still remains soft at this time despite initiation of midodrine therapy; furthermore, imaging studies to date demonstrate possible worsening pulmonary edema leading to decrease in IVF rate; he continues to have on off nausea and abdominal discomfort despite initiation of bowel regimen; renal fu nction remains stable in the last 24 -
--- NOTE | 2022-05-08 11:37 | PM.PNNEP ---
Progress Note: A&P Assessment and Plan (1) Acute kidney injury: Code(s): N17.9 - Acute kidney failure, unspecified Status: Acute Assessment and Plan: some improvement noted likely ATN with multifactorial etiology: prerenal factors hypotension/shock POLI-I/diuretic use [employer]F [employer] infection/sepsis evaluation to date: urine electrolytes prerenal urine eosinophils negative renal ultrasound without obstruction CPK mildly elevated but coming down holding further IVFs due to CXR findings and concerns for volume overload maintain blood pressure/MAP symptoms today and yesterday may be an early uremic symptoms unfortunately, the only true way to know if uremia is present is to treat with dialysis and reassess follow repeat labs and UOP (2) Septic shock: Code(s): A41.9 - Sepsis, unspecified organism; R65.21 - Severe sepsis with septic shock Status: Acute Assessment and Plan: as evidenced by presentation with low BP, lactic acidosis, tachycardia, elevated WBC and WILLIAN thought to be secondary to pneumonia +/- UTI follow culture data - blood/urine culture negative to date follow hemodynamics off IVFs due to concerns of pulmonary edema on midodrine currently check cortisol level consider adding IV albumin has not required vasopressor support as of yet (3) Multifocal pneumonia: Code(s): J18.9 - Pneumonia, unspecified organism Status: Acute Assessment and Plan: as noted by admission imaging CT of chest results noted -- innumerable pulmonary nodules, multiple hepatic nodules, and lymphadenopathy suspicious for metastatic disease suspect will tissues biopsy for a definitive diagnosis follow culture data on antibiotics (4) Metabolic acidosis: Code(s): E87.20 - Acidosis, unspecified Status: Acute Assessment and Plan: secondary to lactic acidosis from sepsis and WILLIAN improvement noted with bicarb IVFs on oral sodium bicarbonate follow trend of lactic acid (5) Hyponatremia: Code(s): E87.1 - Hypo-osmolality and hyponatremia Status: Acute Assessment and Plan: partly related to WILLIAN however, if malignancy is present, could be secondary to this as well follow trend of sodium (6) Suspected malignant neoplasm: Code(s): R68.89 - Other general symptoms and signs Status: Acute Assessment and Plan: suspicion based on CT chest findings Oncology recommendations noted s/p biopsy of subclavian lymph node (7) Elevated LFTs: Code(s): R79.89 - Other specified abnormal findings of blood chemistry Status: Acute Assessment and Plan: presumably related to shock/low BP however, cannot deny possibility that it is related to liver masses follow trend Long and extensive discussion (> 20 minutes) with patient and his parents at bedside regarding his renal dysfunction and the possible etiology of some of his symptoms being related to uremia. They are willing to do dialysis if necessary. Will continue to follow. Subjective Date/time seen: 05/08/22 11:37 Blood pressure still remains soft at this time despite initiation of midodrine therapy; furthermore, imaging studies to date demonstrate possible worsening pulmonary edema leading to decrease in IVF rate; he continues to have on off nausea and abdominal discomfort despite initiation of bowel regimen; renal function remains stable in the last 24 - 48 hours although high BUN is still quite elevated; family at bedside and we discussed the situation. Exam Narrative: General: WD/WN male in NAD Heart: normal S1 and S2; no rub Lungs: coarse and decreased at bases Abdomen: soft, nontender, nondistended, positive bowel sounds Extremities: no cyanosis or clubbing; trace - 1+ edema Skin: no rash Objective Data Vital Signs Vital Signs: Vital Signs Temp Pulse Resp BP Pulse Ox 05/08/22 07:43 97.4 F L 94 14 88/4
[2022-05-08] MEDS: MIDODRINE HCL 2.5 MG TABLET 7.5 MG PO ×2 (12:06→19:16)
--- NOTE | 2022-05-08 12:17 | WPDINTPN ---
Progress Note: A&P Assessment and Plan (1) Hypotension: Code(s): I95.9 - Hypotension, unspecified Status: Acute Assessment and Plan: Patient blood pressure has been the lower side of normal since admission but has been much lower this morning. Overall he is volume overloaded from renal failure and he is on 50 mL/hour of IV fluids. He is third-spacing and has low albumin He has been on broad-spectrum antibiotics. His WBC is high but he is afebrile Check lactic acid level Albumin 25% Continue midodrine Repeat CT scan of abdomen pelvis Start vasopressors if needed (2) Sepsis: Code(s): A41.9 - Sepsis, unspecified organism Status: Acute Assessment and Plan: Patient initially presented with picture consistent with sepsis. Likely source was UTI and possibly a multifocal pneumonia Patient appears to had viral infection earlier this month which could have been followed by bacterial secondary infection His procalcitonin level is elevated but his blood culture and urine cultures remain negative Blood and urine cultures have been sent and are pending Mycoplasma IgM was low, urine Legionella antigen was negative, urine pneumococcal antigen -pending Influenza RSV and COVID were negative Patient is currently on antibiotics in the form of vancomycin cefepime Patient on IV fluids at 50 mL per (3) Multifocal pneumonia: Code(s): J18.9 - Pneumonia, unspecified organism Status: Acute Assessment and Plan: See above (4) Urinary tract infection: Code(s): N39.0 - Urinary tract infection, site not specified Status: Acute Assessment and Plan: See above (5) Acute kidney injury: Code(s): N17.9 - Acute kidney failure, unspecified Status: Acute Assessment and Plan: Patient presented with acute kidney injury which is likely multifactorial secondary to sepsis, POLI-inhibitor, diuretics, hypokalemia, NSAIDS CK level mildly elevated Renal ultrasound- Bladder not well evaluated. Small volume free abdominopelvic fluid. Otherwise unremarkable renal sonogram findings. Nephrology is following His creatinine has improved from 5.9-3.1 today but BUN remains elevated Will place urinary catheter for accurate intake and output monitoring Spoke to Nephrology and in light of patient's persistent uremia and volume overload with poor urine output, will initiate hemodialysis. I spoke to patient in detail about risk and benefit of dialysis and dialysis catheter placement. He is agreeable to proceed as he is frustrated with lack of improvement in his health and with symptoms. Temporary dialysis catheter was placed at bedside and nephrology notified and they will plan to start hemodialysis today (6) Acute hyperkalemia: Code(s): E87.5 - Hyperkalemia Status: Acute Assessment and Plan: Potassium mildly elevated on admission Resolved with treatment (7) Metabolic acidosis: Code(s): E87.20 - Acidosis, unspecified Status: Acute Assessment and Plan: Improved with IV and p.o. bicarb (8) Swelling of lower extremity: Code(s): M79.89 - Other specified soft tissue disorders Status: Acute Assessment and Plan: Likely volume overload from renal failure Echo ?1. Technically suboptimal study due to poor sonographic images. ? 2. Definity contrast administered improved wall motion interpretation. ? 3. Left ventricular chamber dimension is normal. ? 4. Left ventricular systolic function is normal, estimated at 60-65%. ? 5. The left ventricular diastolic function is normal. ? 6. E/e' 8 is minimally elevated. ? 7. The mitral valve has mildly calcified annulus. ? 8. No pulmonary hypertension, estimated pulmonary arterial systolic pressure is 37 mmHg. Negative lower extremity venous Dopplers for DVT (9) Suspected malignant neoplasm: Code(s): R68.89 - Other general symptoms and signs Status: Acute Assessment and Plan: CT chest
[2022-05-08] MEDS: ALBUMIN HUMAN 25% 25 GM/100 ML 100 ML IVPB (12:52)
--- NOTE | 2022-05-08 13:29 | WPDPROCEDUR ---
Procedures Hemodialysis Catheter Placement Right IJ: Discussed w/ patient and/or surrogate, the non-emergent placement of a hemodialysis catheter, including it's clinincal necessity/indication & associated potential risks & complications.: Yes The patient and/or surrogate understand(s) and acknowledge(s) the need to proceed with hemodialysis catheter insertion as an important element of the patient's clinical management.: Yes Consent: Consent was obtained from patient HD Catheter Date: 05/08/22 HD Catheter Time: 13:00 Pre-procedural Time-Out was completed immediately before starting the procedure and confirmed: Patient Identification, Site, Procedure, Patient Position and the Availability of Requisite Equipment.: Yes Patient Position: supine Patient Placed on Monitor/Pulse Ox: Yes Provider Prep: mask, sterile gown, sterile gloves, Max. sterile barrier precautions, cap and hand hygiene Hemodialysis Catheter Prep: Povidone-Iodine 1% Local Anesthesia Used: lidocaine 1% Amount of anesthesia used (mL): 5 Ultrasound Used for Placement: Yes Hemodialysis Catheter Inserted: triple Length (cm): 20 Depth of Insertion (cm): 20 Post Procedure: sutured in place, good blood return, all ports aspirated, flushed, capped, transparent dressing and aseptic technique maintained throughout procedure Post Procedure X-Ray: tip of catheter in good position and no pneumothorax seen Patient Tolerated Procedure: other Complications: none Additional Comments: Patient had difficulty laying flat and felt short of breath. Although his saturation was adequate he was placed on oxygen to for the procedure. Throughout the procedure patient kept on complaining of being short of breath and wanted to set up although his vitals and saturation remained stable. Procedure was done as quickly as possible.
[2022-05-08 13:44] LABS: Appearance Urine Clear (Clear); Bilirubin Urine Negative (Negative); Blood Urine Negative (Negative); Color Urine Yellow (Yellow); Glucose Urine UA Negative (Negative); Ketones Urine Trace mg/dL (Negative); Leukocyte Esterase Ur Negative LEU/UL (Negative); Nitrate Urine Negative (Negative); Protein Urine 1+ mg/dL (Negative); Specific Grav Ur >= 1.030 (1.001-1.035); Urobilinogen Urine 0.2 mg/dL (<2.0)
[2022-05-08 13:58] LABS: Mucus Urine Rare /lpf; RBC Urine 0-2 /hpf (0-2); Squamous Epithelial Cell Urine Rare /hpf (Few)
[2022-05-08] MEDS: NOREPINEPHRINE 8 MG/D5W 250 ML 8 MG/250 ML BAG 9.38 MG IV CONT (14:20)
[2022-05-08 14:29] LABS: Add Urine Microscopic? YES
[2022-05-08 15:41] LABS: Reflex Lactic Acid Yes or No Add Lactic
[2022-05-08 16:21] LABS: Chloride Rand Ur <20 mmol/L (32-290); Creatinine Random Urine 128 mg/dL (20-320)
--- NOTE | 2022-05-08 16:32 | PM.IMPN ---
Progress Note: A&P Assessment and Plan (1) Sepsis: Code(s): A41.9 - Sepsis, unspecified organism Status: Acute Assessment and Plan: Patient presented with picture consistent of sepsis Likely source is UTI and possibly a multifocal pneumonia Patient appears to had viral infection earlier this month which could have been followed by bacterial secondary infection Blood and urine cultures have been sent and are pending Mycoplasma IgM, urine Legionella antigen, urine pneumococcal antigen -pending Influenza RSV and COVID were negative Continue empiric antibiotics in the form of vancomycin cefepime and azithromycin Patient on IV fluids which will be continued Patient has not required any vasopressors till now and lactic acid level has normalized 05/08/2022 Interval history: patient presented with shortness of breath is found to have a multifocal pneumonia serologies pending however procalcitonin is elevated and patient is being treated Cefepime, and vancomycin blood cultures so far no growth, patient is also found to have multiple pulmonary nodules and metastasis to liver and bone to further evaluate on 05/06 patient had a biopsy of supraclavicular lymph node pending pathology report, upon arrival patient had a significant elevated BUN and creatinine seen by nephrology and workup is in progress, today again patient complains of bloating abdominal and no BM for several days, KUB did not show any obstruction, will start the patient on Colace and MiraLax, without much relief and very poor urine output, and hypotensive, patient is seen by rotor blade installer and started patient on pressure and discussed with insurance claims supervisor suspect patient symptoms are stemming from uremia BUN is 118/3.10 Scr is improving from 5.9, today nephrologis as decided to start HD, will monitor, patient remains clinically stable will continue to monitor, patient's parents are present in room. (2) Multifocal pneumonia: Code(s): J18.9 - Pneumonia, unspecified organism Status: Acute Assessment and Plan: See above (3) Urinary tract infection: Code(s): N39.0 - Urinary tract infection, site not specified Status: Acute Assessment and Plan: See above (4) Acute kidney injury: Code(s): N17.9 - Acute kidney failure, unspecified Status: Acute Assessment and Plan: Patient presented with acute kidney injury which is likely multifactorial secondary to sepsis, POLI-inhibitor, diuretics, hypokalemia, NSAIDS Urine electrolytes suggest prerenal Continue IV fluids. Change to IV bicarb Renal ultrasound results noted Nephrology consulted May need hemodialysis if kidneys to not recover or continue to worsen (5) Acute hyperkalemia: Code(s): E87.5 - Hyperkalemia Status: Acute Assessment and Plan: Monitor (6) Metabolic acidosis: Code(s): E87.20 - Acidosis, unspecified Status: Acute Assessment and Plan: IV and p.o. bicarb ordered (7) Swelling of lower extremity: Code(s): M79.89 - Other specified soft tissue disorders Status: Acute Assessment and Plan: Likely volume overload from renal failure (8) Suspected malignant neoplasm: Code(s): R68.89 - Other general symptoms and signs Status: Acute Assessment and Plan: Question primary. Oncology consulted for further guidance and recommendations Will need biopsy Subjective Date/time seen: 05/08/22 16:32 05/08/2022 Interval history: patient presented with shortness of breath is found to have a multifocal pneumonia serologies pending however procalcitonin is elevated and patient is being treated Cefepime, and vancomycin blood cultures so far no growth, patient is also found to have multiple pulmonary nodules and metastasis to liver and bone to further evaluate on 05/06 patient had a biopsy of supraclavicular lymph node pending pathology report, upon arrival patient had a significant elevated BUN an
[2022-05-08 16:51] LABS: Lactic Acid 0.7 mmol/L (0.7-2.0)
[2022-05-08] MEDS: NOREPINEPHRINE 8 MG/D5W 250 ML 8 MG/250 ML BAG 33.75 MG IV CONT (22:59)
[2022-05-09] VITALS (154 sets, daily range): BP systolic 62–165; BP diastolic 44–138; PULSE 82–116; RESP 12–28; TEMP 35.4–36.9; O2SAT 84–100
[2022-05-09] MEDS: ALBUMIN HUMAN 25% 25 GM/100 ML 100 ML IVPB ×5 (00:13→23:36)
[2022-05-09] MEDS: METOCLOPRAMIDE HCL INJ 10 MG/2 ML VIAL IV PUSH ×2 (00:13→05:00)
[2022-05-09] MEDS: HYDROcodone/acetaminophen (*CRX) 5-325 MG TABLET 1 TAB PO (02:34)
[2022-05-09 03:26] LABS: Hematocrit 39.4 % (42.0-52.0); Hemoglobin 13.3 g/dL (14.0-18.0); Mean Corpuscular HGB Conc 33.8 g/dl (32-36); Mean Corpuscular Volume 97.8 fl (80-100); Mean Platelet Volume 10.4 fl (7.4-10.4); Platelet Count Result 197 k/mm3 (150-375); Red Blood Count 4.03 M/mm3 (4.6-6.20); Red Cell Distribution Width 14.5 % (11.5-14.5)
[2022-05-09 03:49] LABS: Alanine Aminotransferase 39 U/L (6-50); Albumin Level 3.1 g/dL (3.5-5.1); Alkaline Phosphatase 267 U/L (38-126); Anion Gap 15 mmol/L (8-16); Aspartate Amino Transferase 47 U/L (17-59); Blood Urea Nitrogen 95 mg/dL (9-20); Calcium 7.2 mg/dL (8.4-10.2); Carbon Dioxide 24 mmol/L (22-30); Chloride 90 mmol/L (98-107); Estimated CRCL calculation 32 ml/min; Estimated Glomerular Filt Rate 19; Glucose 167 mg/dL (65-110); Magnesium 2.9 mg/dL (1.6-2.3); Phosphorus 7.9 mg/dL (2.5-4.5); Potassium 4.2 mmol/L (3.4-5.0); Sodium 129 mmol/L (137-145)
[2022-05-09] MEDS: NOREPINEPHRINE 8 MG/D5W 250 ML 8 MG/250 ML BAG 33.75 MG IV CONT (04:59)
[2022-05-09] MEDS: SODIUM BICARBONATE TAB 650 MG TABLET PO ×2 (08:19→16:54)
[2022-05-09] MEDS: ENOXAPARIN 30 MG/0.3 ML SYRINGE SUB-Q (08:19)
[2022-05-09] MEDS: MIDODRINE HCL 2.5 MG TABLET 7.5 MG PO (08:19)
--- NOTE | 2022-05-09 08:45 | WPDINTPN ---
Progress Note: A&P Assessment and Plan (1) Hypotension: Code(s): I95.9 - Hypotension, unspecified Status: Acute Assessment and Plan: Patient blood pressure has been the lower side of normal since admission but has been much lower yesterday. Overall he is volume overloaded from renal failure and he was on 50 mL/hour of IV fluids. He is third-spacing and has low albumin He has been on broad-spectrum antibiotics. His WBC is high but he has been afebrile Lactic acid has normalized now Continue Albumin 25% Continue midodrine Continue Levophed titration 2/[address] scan of abdomen pelvis was done and showed IMPRESSION: 1. Pulmonary nodules, liver masses, and chest and abdominal lymphadenopathy, consistent with metastatic disease. Biopsy results are pending. 2. Mild pulmonary edema. 3. Moderate-sized pleural effusions with worsening on the left. 4. Small volume of ascites with interval worsening. 5. Cirrhosis of liver. 6. L1 lytic lesion, which may be a hemangioma or metastatic disease. (2) Sepsis: Code(s): A41.9 - Sepsis, unspecified organism Status: Acute Assessment and Plan: Patient initially presented with picture consistent with sepsis. Likely source was UTI and possibly a multifocal pneumonia Patient appears to had viral infection earlier this month which could have been followed by bacterial secondary infection His procalcitonin level is elevated but his blood culture and urine cultures remain negative Blood and urine cultures have been sent and are pending Mycoplasma IgM was low, urine Legionella antigen was negative, urine pneumococcal antigen -pending Influenza RSV and COVID were negative Patient is currently on antibiotics in the form of vancomycin cefepime IV fluids have been discontinued CT chest abdomen pelvis as above Check MRSA screen UA was negative Repeat blood cultures Start stress dose hydrocortisone (3) Multifocal pneumonia: Code(s): J18.9 - Pneumonia, unspecified organism Status: Acute Assessment and Plan: See above (4) Urinary tract infection: Code(s): N39.0 - Urinary tract infection, site not specified Status: Acute Assessment and Plan: See above (5) Acute kidney injury: Code(s): N17.9 - Acute kidney failure, unspecified Status: Acute Assessment and Plan: Patient presented with acute kidney injury which is likely multifactorial secondary to sepsis, POLI-inhibitor, diuretics, hypokalemia, NSAIDS CK level mildly elevated Renal ultrasound- Bladder not well evaluated. Small volume free abdominopelvic fluid. Otherwise unremarkable renal sonogram findings. Nephrology is following His creatinine has improved from 5.9-3.1 today but BUN remains elevated 2/[address] urinary catheter for accurate intake and output monitoring Spoke to Nephrology and in light of patient's persistent uremia and volume overload with poor urine output, will initiate hemodialysis. I spoke to patient in detail about risk and benefit of dialysis and dialysis catheter placement. He is agreeable to proceed as he is frustrated with lack of improvement in his health and with symptoms. Temporary dialysis catheter was placed at bedside and nephrology notified and they will plan to start hemodialysis today 2/4 yesterday patient had hemodialysis and. 1.5 L fluid was removed. Plan for another hemodialysis session today (6) Acute hyperkalemia: Code(s): E87.5 - Hyperkalemia Status: Acute Assessment and Plan: Potassium mildly elevated on admission Resolved with treatment (7) Metabolic acidosis: Code(s): E87.20 - Acidosis, unspecified Status: Acute Assessment and Plan: Improved with bicarb and dialysis (8) Swelling of lower extremity: Code(s): M79.89 - Other specified soft tissue disorders Status: Acute Assessment and Plan: Likely volume overload from renal failure Echo ?1. Technically suboptima
[2022-05-09] MEDS: HYDROCORTISONE SODIUM SUCCINATE 100 MG/2 ML VIAL IV PUSH ×3 (09:42→23:38)
[2022-05-09] MEDS: DOCUSATE SODIUM 100 MG CAPSULE PO ×2 (09:42→20:51)
[2022-05-09 09:50] LABS: Ammonia < 9 umol/L (9-30)
[2022-05-09] MEDS: SODIUM CHLORIDE 0.9% IV 1,000 ML 999 ML IV CONT (10:17)
[2022-05-09 10:57] LABS: Hepatitis B Core Ab Total Nonreactive (Nonreactive)
--- NOTE | 2022-05-09 12:05 | P.PNNP_ITS ---
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 use DATE NIGHT CAREGIVER * infection/sepsis * evaluation to date: * urine electrolytes prerenal * urine eosinophils negative * renal ultrasound without obstruction * CPK mildly elevated but coming down * holding further IVFs due to CXR findings and concerns for volume overload * maintain blood pressure/MAP - on pressors * given GI symptoms and shortness of breath in the last 48 hours, initiated on MOTOR SCOOTER REPAIRER/dialysis * clinically feels better following HD yesterday * breathing, edema, and GI symptoms improved * hold HD tomorrow and reassess need on Wednesday * follow-up on pending serologies * follow repeat labs and UOP for ongoing recovery (2) Septic shock: Code(s): A41.9 - Sepsis, unspecified organism; R65.21 - Severe sepsis with septic shock Status: Acute Assessment and Plan: * as evidenced by presentation with low BP, lactic acidosis, tachycardia, elevated WBC and WILLIAN * thought to be secondary to pneumonia +/- UTI * follow culture data - blood/urine culture negative to date * follow hemodynamics * off IVFs due to concerns of pulmonary edema * on midodrine currently * IV albumin PRN * consider checking cortisol but already on stress dose steroids * initiated on vasopressor therapy yesterday - wean as tolerated (3) Multifocal pneumonia: Code(s): J18.9 - Pneumonia, unspecified organism Status: Acute Assessment and Plan: * as noted by admission imaging * CT of chest results noted -- innumerable pulmonary nodules, multiple hepatic nodules, and lymphadenopathy suspicious for metastatic disease * suspect will tissues biopsy for a definitive diagnosis * follow culture data * on antibiotics (4) Metabolic acidosis: Code(s): E87.20 - Acidosis, unspecified Status: Acute Assessment and Plan: * secondary to lactic acidosis from sepsis and WILLIAN * improvement noted with bicarb IVFs * on oral sodium bicarbonate * follow trend of lactic acid (5) Hyponatremia: Code(s): E87.1 - Hypo-osmolality and hyponatremia Status: Acute Assessment and Plan: * partly related to WILLIAN * however, if malignancy is present, could be secondary to this as well * some correction with MOTOR SCOOTER REPAIRER/dialysis * follow trend of sodium (6) Suspected malignant neoplasm: Code(s): R68.89 - Other general symptoms and signs Status: Acute Assessment and Plan: * suspicion based on CT chest findings * Oncology recommendations noted * s/p biopsy of subclavian lymph node (7) Elevated LFTs: Code(s): R79.89 - Other specified abnormal findings of blood chemistry Status: Acute Assessment and Plan: * presumably related to shock/low BP * however, cannot deny possibility that it is related to liver masses * follow trend Will continue to follow. Subjective Date/time seen: 05/09/22 12:05 S/P temporary HD catheter placement along with short dialysis treatment yesterday -- tolerated both interventions reasonably well; tolerating dialysis treatment at the time of my visit (seen on HD at ~ 11:50AM); feels that breathing has improved some as well as abdominal distention/ bloating and lower extremity edema seems better as well; remains on levophed gtt cur
--- NOTE | 2022-05-09 12:05 | PM.PNNEP ---
Progress Note: A&P Assessment and Plan (1) Acute kidney injury: Code(s): N17.9 - Acute kidney failure, unspecified Status: Acute Assessment and Plan: some improvement noted likely ATN with multifactorial etiology: prerenal factors hypotension/shock POLI-I/diuretic use REIMBURSEMENT REP infection/sepsis evaluation to date: urine electrolytes prerenal urine eosinophils negative renal ultrasound without obstruction CPK mildly elevated but coming down holding further IVFs due to CXR findings and concerns for volume overload maintain blood pressure/MAP - on pressors given GI symptoms and shortness of breath in the last 48 hours, initiated on FLOW COORDINATOR/dialysis clinically feels better following HD yesterday breathing, edema, and GI symptoms improved hold HD tomorrow and reassess need on Wednesday follow-up on pending serologies follow repeat labs and UOP for ongoing recovery (2) Septic shock: Code(s): A41.9 - Sepsis, unspecified organism; R65.21 - Severe sepsis with septic shock Status: Acute Assessment and Plan: as evidenced by presentation with low BP, lactic acidosis, tachycardia, elevated WBC and WILLIAN thought to be secondary to pneumonia +/- UTI follow culture data - blood/urine culture negative to date follow hemodynamics off IVFs due to concerns of pulmonary edema on midodrine currently IV albumin PRN consider checking cortisol but already on stress dose steroids initiated on vasopressor therapy yesterday - wean as tolerated (3) Multifocal pneumonia: Code(s): J18.9 - Pneumonia, unspecified organism Status: Acute Assessment and Plan: as noted by admission imaging CT of chest results noted -- innumerable pulmonary nodules, multiple hepatic nodules, and lymphadenopathy suspicious for metastatic disease suspect will tissues biopsy for a definitive diagnosis follow culture data on antibiotics (4) Metabolic acidosis: Code(s): E87.20 - Acidosis, unspecified Status: Acute Assessment and Plan: secondary to lactic acidosis from sepsis and WILLIAN improvement noted with bicarb IVFs on oral sodium bicarbonate follow trend of lactic acid (5) Hyponatremia: Code(s): E87.1 - Hypo-osmolality and hyponatremia Status: Acute Assessment and Plan: partly related to WILLIAN however, if malignancy is present, could be secondary to this as well some correction with FLOW COORDINATOR/dialysis follow trend of sodium (6) Suspected malignant neoplasm: Code(s): R68.89 - Other general symptoms and signs Status: Acute Assessment and Plan: suspicion based on CT chest findings Oncology recommendations noted s/p biopsy of subclavian lymph node (7) Elevated LFTs: Code(s): R79.89 - Other specified abnormal findings of blood chemistry Status: Acute Assessment and Plan: presumably related to shock/low BP however, cannot deny possibility that it is related to liver masses follow trend Will continue to follow. Subjective Date/time seen: 05/09/22 12:05 S/P temporary HD catheter placement along with short dialysis treatment yesterday -- tolerated both interventions reasonably well; tolerating dialysis treatment at the time of my visit (seen on HD at ~ 11:50AM); feels that breathing has improved some as well as abdominal distention/ bloating and lower extremity edema seems better as well; remains on levophed gtt currently. Exam Narrative: General: WD/WN male in NAD Heart: normal S1 and S2; no rub Lungs: coarse and decreased at bases Abdomen: soft, nontender, nondistended, positive bowel sounds Extremities: no cyanosis or clubbing; trace edema Skin: no rash Objective Data Vital Signs Vital Signs: Vital Signs Temp Pulse Resp BP Pulse Ox O2 Del Method O2 Flow Rate 05/09/22 12:00 103 H 05/09/22 12:00 96 14 96 05/09/22 11:54 107 H 17 108/72 94
[2022-05-09] MEDS: NOREPINEPHRINE 8 MG/D5W 250 ML 8 MG/250 ML BAG 41.25 MG IV CONT (12:15)
[2022-05-09] MEDS: MIDODRINE HCL 10 MG TABLET PO ×2 (12:23→16:54)
[2022-05-09] MEDS: SIMETHICONE 125 MG CHEW TAB PO (12:34)
[2022-05-09] MEDS: polyethylene glycoL 3350 17 GM POWD.PACK PO (12:36)
--- NOTE | 2022-05-09 14:10 | PM.IMPN ---
Progress Note: A&P Assessment and Plan (1) Sepsis: Code(s): A41.9 - Sepsis, unspecified organism Status: Acute Assessment and Plan: Patient presented with picture consistent of sepsis Likely source is UTI and possibly a multifocal pneumonia Patient appears to had viral infection earlier this month which could have been followed by bacterial secondary infection Blood and urine cultures have been sent and are pending Mycoplasma IgM, urine Legionella antigen, urine pneumococcal antigen -pending Influenza RSV and COVID were negative Continue empiric antibiotics in the form of vancomycin cefepime and azithromycin Patient on IV fluids which will be continued Patient has not required any vasopressors till now and lactic acid level has normalized 05/09/2022 Interval history: patient presented with shortness of breath is found to have a multifocal pneumonia serologies pending however procalcitonin is elevated and patient is being treated Cefepime, and vancomycin blood cultures so far no growth, patient is also found to have multiple pulmonary nodules and metastasis to liver and bone to further evaluate on 05/06 patient had a biopsy of supraclavicular lymph node pending pathology report, upon arrival patient had a significant elevated BUN and creatinine seen by nephrology and workup is in progress, today again patient complains of bloating abdominal and no BM for several days, KUB did not show any obstruction, started the patient on Colace and MiraLax, without much relief and very poor urine output, and hypotensive, on 05/08 patient was seen by senior web services developer and started patient on pressure and discussed with tick eradicator suspect patient symptoms are stemming from uremia BUN is 118/3.10 Scr is improving from 5.9, on 05/08 tick eradicator decided to start HD, and 1.5L was removed this did improver his BUN and today patient is not as nauseas, today again patient will have HD and plan is remove 2.5L fluids, will monitor, patient remains clinically stable will continue to monitor. (2) Multifocal pneumonia: Code(s): J18.9 - Pneumonia, unspecified organism Status: Acute Assessment and Plan: See above (3) Urinary tract infection: Code(s): N39.0 - Urinary tract infection, site not specified Status: Acute Assessment and Plan: See above (4) Acute kidney injury: Code(s): N17.9 - Acute kidney failure, unspecified Status: Acute Assessment and Plan: Patient presented with acute kidney injury which is likely multifactorial secondary to sepsis, POLI-inhibitor, diuretics, hypokalemia, NSAIDS Urine electrolytes suggest prerenal Continue IV fluids. Change to IV bicarb Renal ultrasound results noted Nephrology consulted May need hemodialysis if kidneys to not recover or continue to worsen (5) Acute hyperkalemia: Code(s): E87.5 - Hyperkalemia Status: Acute Assessment and Plan: Monitor (6) Metabolic acidosis: Code(s): E87.20 - Acidosis, unspecified Status: Acute Assessment and Plan: IV and p.o. bicarb ordered (7) Swelling of lower extremity: Code(s): M79.89 - Other specified soft tissue disorders Status: Acute Assessment and Plan: Likely volume overload from renal failure (8) Suspected malignant neoplasm: Code(s): R68.89 - Other general symptoms and signs Status: Acute Assessment and Plan: Question primary. Oncology consulted for further guidance and recommendations Will need biopsy Subjective Date/time seen: 05/09/22 14:11 05/09/2022 Interval history: patient presented with shortness of breath is found to have a multifocal pneumonia serologies pending however procalcitonin is elevated and patient is being treated Cefepime, and vancomycin blood cultures so far no growth, patient is also found to have multiple pulmonary nodules and metastasis to liver and bone to further evaluate on 05/06 patient had
[2022-05-09 15:46] LABS: Legionella pneumophila Ag Ur Not Detected (Not Detected)
[2022-05-09 19:15] LABS: Vancomycin Random 21.5 ug/mL (10-20)
[2022-05-09] MEDS: QUEtiapine FUMARATE 25 MG TABLET PO (20:51)
[2022-05-09] MEDS: NOREPINEPHRINE 8 MG/D5W 250 ML 8 MG/250 ML BAG 18.75 MG IV CONT (20:51)
--- NOTE | 2022-05-09 21:56 | PC.NURSE ---
1999 Patient hasn't slept for a few nights and is very delirious now stating he wants to go home, constantly taking off his oxygen off and trying to get out of bed. Dr. Grigsby called and Seroquel 25mg ordered for sleep.
[2022-05-09] MEDS: MELATONIN 5 MG TABLET PO (22:46)
[2022-05-10] VITALS (153 sets, daily range): BP systolic 60–156; BP diastolic 23–127; PULSE 66–198; RESP 5–75; TEMP 35.1–37.2; O2SAT 89–100
[2022-05-10 04:16] LABS: Hematocrit 37.2 % (42.0-52.0); Hemoglobin 12.4 g/dL (14.0-18.0); Mean Corpuscular HGB Conc 33.3 g/dl (32-36); Mean Corpuscular Hemoglobin 33.2 pg (26-34); Mean Corpuscular Volume 99.5 fl (80-100); Mean Platelet Volume 10.5 fl (7.4-10.4); Platelet Count Result 174 k/mm3 (150-375); Red Blood Count 3.74 M/mm3 (4.6-6.20); Red Cell Distribution Width 14.5 % (11.5-14.5); White Blood Count 39.6 K/mm3 (4.5-10.0)
[2022-05-10 04:28] LABS: Alanine Aminotransferase 36 U/L (6-50); Albumin Level 3.4 g/dL (3.5-5.1); Alkaline Phosphatase 259 U/L (38-126); Anion Gap 10 mmol/L (8-16); Aspartate Amino Transferase 43 U/L (17-59); Bilirubin,Total 0.9 mg/dL (0.2-1.3); Blood Urea Nitrogen 79 mg/dL (9-20); Calcium 8.2 mg/dL (8.4-10.2); Carbon Dioxide 26 mmol/L (22-30); Chloride 96 mmol/L (98-107); Estimated CRCL calculation 36 ml/min; Estimated Glomerular Filt Rate 20; Glucose 181 mg/dL (65-110); Magnesium 2.9 mg/dL (1.6-2.3); Phosphorus 6.6 mg/dL (2.5-4.5); Potassium 4.3 mmol/L (3.4-5.0); Sodium 132 mmol/L (137-145)
[2022-05-10] MEDS: ALBUMIN HUMAN 25% 25 GM/100 ML 100 ML IVPB ×3 (05:49→17:33)
[2022-05-10] MEDS: CENTRAL LINE FLUSH 10 ML IV PUSH ×4 (05:52→21:17)
--- NOTE | 2022-05-10 07:48 | ECG_ITS ---
Measurements Intervals [place] Rate: 96 P: 63 SC: 139 QRS: 56 QRSD: 97 T: 163 QT: 348 QTc: 441 Interpretive Statements SINUS RHYTHM LOW QRS VOLTAGE IN EXTREMITY LEADS [QRS DEFLECTION < 0.5 mV IN LIMB LEADS] MODERATE T-WAVE ABNORMALITY, CONSIDER ANTEROLATERAL ISCHEMIA [-0.1+ mV T WAVE IN V3-V6] MODERATE T-WAVE ABNORMALITY, CONSIDER INFERIOR ISCHEMIA [-0.1+ mV T WAVE IN II/aVF] ABNORMAL ECG Electronically Signed On 05-10-2022 11:32:45 KNITTER MECHANIC by Christiano Thibodeaux M.D.
--- NOTE | 2022-05-10 07:53 | PC.NURSE ---
0645 Patient was belching a lot this morning and his abdomen was noted to be very rigid. Day shift nurse was given an update on patient. Dr. Nathan ordered a KUB. At around 0720, while XRAY was in the patient's room to do the KUB and lying the bed down, patient was noted to be unresponsive and in PEA. A CODE Blue was CPR was immediately started.
[2022-05-10 07:59] LABS: Base Excess ABG -11.8 mEq/l (+/-2.0); Fractional Inspired Oxygen 100 %; HCO3 ABG 18.7 mEq/l (22.0-26.0); Oxygen Content ABG 15.9 %vol (16.0-22.0); Oxygen Saturation ABG 97.9 % (95.0-100.0); Oxyhemoglobin 96.4 % THb (90.0-100.0); PO2 ABG 148.3 mmHg (80.0-100.0); PO2 FiO2 Ratio Arterial Blood 1.48 %; Total Hemoglobin 11.5 g/dL (12.0-18.0)
[2022-05-10 08:02] LABS: pH ABG 7.072 (7.350-7.450)
[2022-05-10 08:03] LABS: PCO2 ABG 65.7 mmHg (35.0-45.0); Site Drawn LEFT BRACHIAL
[2022-05-10 08:04] LABS: Arterial Blood Gas PEEP 5 cmH2O; Arterial Blood Gas Pressure Support 0 cmH2O; Arterial Blood Gas Tidal Volume 450 ml; Arterial Blood Gas Vent Mode CMV; Arterial Blood Gas Ventilator rate 24 /MIN; Device VENTILATOR
[2022-05-10] MEDS: NOREPINEPHRINE 8 MG/D5W 250 ML 8 MG/250 ML BAG 9.38 MG IV CONT (08:31)
[2022-05-10] MEDS: SODIUM BICARBONATE 8.4% 50 MEQ/50 ML SYRINGE 100 MEQ (08:47)
[2022-05-10] MEDS: SODIUM BICARBONATE 8.4% 50 MEQ/50 ML SYRINGE IV PUSH (08:47)
[2022-05-10] MEDS: VASOPRESSIN INJ 100 UNITS in DEXTROSE 5% 95 ML IV CONT (08:54)
[2022-05-10] MEDS: SODIUM CHLORIDE 0.9% IV 1,000 ML 999 ML IV CONT (09:07)
[2022-05-10 09:33] LABS: Alveolar/Arterial O2 Gradient 512.9 mmHg; Base Excess ABG -1.9 mEq/l (+/-2.0); Fractional Inspired Oxygen 100 %; HCO3 ABG 23.4 mEq/l (22.0-26.0); Oxygen Content ABG 17.1 %vol (16.0-22.0); Oxyhemoglobin 97.7 % THb (90.0-100.0); PCO2 ABG 41.8 mmHg (35.0-45.0); PO2 ABG 158.3 mmHg (80.0-100.0); PO2 FiO2 Ratio Arterial Blood 1.58 %; Total Hemoglobin 12.2 g/dL (12.0-18.0); pH ABG 7.366 (7.350-7.450)
[2022-05-10 09:34] LABS: Device VENTILATOR; Modified Allen's Test Pass; Site Drawn LEFT BRACHIAL
[2022-05-10 09:35] LABS: Arterial Blood Gas PEEP 5 cmH2O; Arterial Blood Gas Tidal Volume 450 ml; Arterial Blood Gas Vent Mode CMV; Arterial Blood Gas Ventilator rate 24 /MIN
[2022-05-10 09:55] LABS: Hematocrit 32.5 % (42.0-52.0); Hemoglobin 10.6 g/dL (14.0-18.0); Mean Corpuscular HGB Conc 32.6 g/dl (32-36); Mean Corpuscular Volume 101.2 fl (80-100); Mean Platelet Volume 10.1 fl (7.4-10.4); Platelet Count Result 145 k/mm3 (150-375); Red Blood Count 3.21 M/mm3 (4.6-6.20); Red Cell Distribution Width 14.6 % (11.5-14.5); White Blood Count 38.5 K/mm3 (4.5-10.0)
[2022-05-10 10:04] LABS: Magnesium 3.1 mg/dL (1.6-2.3)
[2022-05-10 10:05] LABS: INR 1.8; Partial Thromboplastin Time 32.5 SECONDS (22.3-36.8); Prothrombin Time 19.9 Seconds (11.1-14.7)
[2022-05-10 10:08] LABS: Albumin Level 3.3 g/dL (3.5-5.1); Alkaline Phosphatase 218 U/L (38-126); Anion Gap 13 mmol/L (8-16); Aspartate Amino Transferase 136 U/L (17-59); Bilirubin,Total 0.9 mg/dL (0.2-1.3); Blood Urea Nitrogen 84 mg/dL (9-20); Calcium 7.5 mg/dL (8.4-10.2); Carbon Dioxide 28 mmol/L (22-30); Chloride 93 mmol/L (98-107); Estimated CRCL calculation 33 ml/min; Estimated Glomerular Filt Rate 18; Glucose 169 mg/dL (65-110); Potassium 4.2 mmol/L (3.4-5.0); Sodium 134 mmol/L (137-145)
[2022-05-10 10:09] LABS: Lactic Acid Reflex 7.7 mmol/L (0.7-2.0)
[2022-05-10 10:13] LABS: Alanine Aminotransferase 70 U/L (6-50)
--- NOTE | 2022-05-10 10:35 | P.PNNP_ITS ---
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 * infection/sepsis * evaluation to date: * urine electrolytes prerenal * urine eosinophils negative * renal ultrasound without obstruction * CPK mildly elevated but coming down * holding further IVFs due to CXR findings and concerns for volume overload * maintain blood pressure/MAP - on pressors * given GI symptoms and volume overload -- initiated on LINE SERVICE ATTENDANT/dialysis * was clinically feels better following HD day before and yesterday * concerning that BUN + creatinine did not change much following dialysis treatments * suspect highly catabolic with inflammation +/- malignancy (?) * hold HD today and reassess need on Wednesday (suspect will need assuming can tolerate based on hemodynamics) * follow-up on pending serologies * follow repeat labs and UOP for ongoing recovery (2) Septic shock: Code(s): A41.9 - Sepsis, unspecified organism; R65.21 - Severe sepsis with septic shock Status: Acute Assessment and Plan: * as evidenced by presentation with low BP, lactic acidosis, tachycardia, elevated WBC and WILLIAN * thought to be secondary to pneumonia +/- UTI * follow culture data - blood/urine culture negative to date * follow hemodynamics * on vasopressor therapy at this time (3) Acute respiratory failure: Code(s): J96.00 - Acute respiratory failure, unspecified whether with hypoxia or hypercapnia Status: Acute Assessment and Plan: * intubated and on mechanical ventilation * possible complicated by aspiration * hypothermia protocol initiated (down time approximately 15 minutes) (4) Multifocal pneumonia: Code(s): J18.9 - Pneumonia, unspecified organism Status: Acute Assessment and Plan: * as noted by admission imaging * CT of chest results noted -- innumerable pulmonary nodules, multiple hepatic nodules, and lymphadenopathy suspicious for metastatic disease * suspect will tissues biopsy for a definitive diagnosis * possible aspiration playing a role now as well (see #3) * follow culture data * on antibiotics (5) Metabolic acidosis: Code(s): E87.20 - Acidosis, unspecified Status: Acute Assessment and Plan: * secondary to lactic acidosis from sepsis and WILLIAN * improvement noted with bicarb IVFs * was on oral sodium bicarbonate * follow trend of lactic acid (6) Hyponatremia: Code(s): E87.1 - Hypo-osmolality and hyponatremia Status: Acute Assessment and Plan: * partly related to WILLIAN * however, if malignancy is present, could be secondary to this as well * some correction with LINE SERVICE ATTENDANT/dialysis * follow trend of sodium (7) Suspected malignant neoplasm: Code(s): R68.89 - Other general symptoms and signs Status: Acute Assessment and Plan: * suspicion based on CT chest findings * Oncology recommendations noted * s/p biopsy of subclavian lymph node (8) Elevated LFTs: Code(s): R79.89 - Other specified abnormal findings of blood chemistry Status: Acute Assessment and Plan: * presumably related to shock/low BP * however, cannot deny possibility that it is related to liver masses * follow trend Will continue to follow. Subjective Date/time seen: 05/10/22 10:35 A
--- NOTE | 2022-05-10 10:35 | PM.PNNEP ---
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 infection/sepsis evaluation to date: urine electrolytes prerenal urine eosinophils negative renal ultrasound without obstruction CPK mildly elevated but coming down holding further IVFs due to CXR findings and concerns for volume overload maintain blood pressure/MAP - on pressors given GI symptoms and volume overload -- initiated on LANDSCAPE PAINTER/dialysis was clinically feels better following HD day before and yesterday concerning that BUN + creatinine did not change much following dialysis treatments suspect highly catabolic with inflammation +/- malignancy (?) hold HD today and reassess need on Wednesday (suspect will need assuming can tolerate based on hemodynamics) follow-up on pending serologies follow repeat labs and UOP for ongoing recovery (2) Septic shock: Code(s): A41.9 - Sepsis, unspecified organism; R65.21 - Severe sepsis with septic shock Status: Acute Assessment and Plan: as evidenced by presentation with low BP, lactic acidosis, tachycardia, elevated WBC and WILLIAN thought to be secondary to pneumonia +/- UTI follow culture data - blood/urine culture negative to date follow hemodynamics on vasopressor therapy at this time (3) Acute respiratory failure: Code(s): J96.00 - Acute respiratory failure, unspecified whether with hypoxia or hypercapnia Status: Acute Assessment and Plan: intubated and on mechanical ventilation possible complicated by aspiration hypothermia protocol initiated (down time approximately 15 minutes) (4) Multifocal pneumonia: Code(s): J18.9 - Pneumonia, unspecified organism Status: Acute Assessment and Plan: as noted by admission imaging CT of chest results noted -- innumerable pulmonary nodules, multiple hepatic nodules, and lymphadenopathy suspicious for metastatic disease suspect will tissues biopsy for a definitive diagnosis possible aspiration playing a role now as well (see #3) follow culture data on antibiotics (5) Metabolic acidosis: Code(s): E87.20 - Acidosis, unspecified Status: Acute Assessment and Plan: secondary to lactic acidosis from sepsis and WILLIAN improvement noted with bicarb IVFs was on oral sodium bicarbonate follow trend of lactic acid (6) Hyponatremia: Code(s): E87.1 - Hypo-osmolality and hyponatremia Status: Acute Assessment and Plan: partly related to WILLIAN however, if malignancy is present, could be secondary to this as well some correction with LANDSCAPE PAINTER/dialysis follow trend of sodium (7) Suspected malignant neoplasm: Code(s): R68.89 - Other general symptoms and signs Status: Acute Assessment and Plan: suspicion based on CT chest findings Oncology recommendations noted s/p biopsy of subclavian lymph node (8) Elevated LFTs: Code(s): R79.89 - Other specified abnormal findings of blood chemistry Status: Acute Assessment and Plan: presumably related to shock/low BP however, cannot deny possibility that it is related to liver masses follow trend Will continue to follow. Subjective Date/time seen: 05/10/22 10:35 Apparently, the patient having significant issues with belching earlier this AM and his abdomen seemed more distended; KUB ordered and while getting this done, patient became unresponsive and noted to be in cardiac arrest; code blue called with CPR/ACLS protocol initiated -- intubated with difficulty and placed on mechanical ventilation; noted to have coffee ground emesis during intubation; increase in vasopressor at this time; tolerated hemodialysis treatment yesterday without issue or problems. Exam N
[2022-05-10] MEDS: NOREPINEPHRINE 8 MG/D5W 250 ML 8 MG/250 ML BAG 41.25 MG IV CONT (11:34)
[2022-05-10] MEDS: MIDAZOLAM 100MG/NS 100ML(*CRX) 100 MG/100 ML BAG IV CONT (11:50)
[2022-05-10] MEDS: FENTANYL 2,500MCG/NS250ML(*CRX 2,500 MCG/250 ML BAG IV CONT (11:52)
[2022-05-10] MEDS: PANTOPRAZOLE SODIUM IV 40 MG VIAL IV PUSH ×2 (12:00→21:16)
[2022-05-10] MEDS: metroNIDAZOLE 500 MG/ISO 100ML 500 MG/100 ML BAG 100 MG IVPB ×2 (12:00→16:25)
[2022-05-10] MEDS: HYDROCORTISONE SODIUM SUCCINATE 100 MG/2 ML VIAL IV PUSH ×2 (12:10→16:27)
[2022-05-10 12:53] LABS: Reflex Lactic Acid Yes or No Add Lactic
[2022-05-10] MEDS: PHYTONADIONE INJ 10 MG/ML AMP IM (13:11)
[2022-05-10] MEDS: levETIRAcetam 1000MG/NACL100ML 1,000 MG/100 ML BAG 400 MG IVPB (13:11)
--- NOTE | 2022-05-10 13:12 | PM.IMPN ---
Progress Note: A&P Assessment and Plan (1) Sepsis: Code(s): A41.9 - Sepsis, unspecified organism Status: Acute Assessment and Plan: Patient presented with picture consistent of sepsis Likely source is UTI and possibly a multifocal pneumonia Patient appears to had viral infection earlier this month which could have been followed by bacterial secondary infection Blood and urine cultures have been sent and are pending Mycoplasma IgM, urine Legionella antigen, urine pneumococcal antigen -pending Influenza RSV and COVID were negative Continue empiric antibiotics in the form of vancomycin cefepime and azithromycin Patient on IV fluids which will be continued Patient has not required any vasopressors till now and lactic acid level has normalized 05/10/2022 Interval history: patient presented with shortness of breath is found to have a multifocal pneumonia serologies pending however procalcitonin is elevated and patient is being treated Cefepime, and vancomycin blood cultures so far no growth, patient is also found to have multiple pulmonary nodules and metastasis to liver and bone to further evaluate on 05/06 patient had a biopsy of supraclavicular lymph node pending pathology report, upon arrival patient had a significant elevated BUN and creatinine seen by nephrology and workup is in progress, today again patient complains of bloating abdominal and no BM for several days, KUB did not show any obstruction, started the patient on Colace and MiraLax, without much relief and very poor urine output, and hypotensive, on 05/08 patient was seen by restrooms or lounges maid and started patient on pressure and discussed with corporate travel manager suspect patient symptoms are stemming from uremia BUN is 118/3.10 Scr is improving from 5.9, on 05/08 corporate travel manager decided to start HD, and 1.5L was removed this did improver his BUN and patient was not as nauseased again on 05/10 patient had HD and removed 2.5L fluids, early this morning patient went into respiratory arrest and patient was intubated and currently on vent, will monitor, patient remains clinically stable will continue to monitor. (2) Multifocal pneumonia: Code(s): J18.9 - Pneumonia, unspecified organism Status: Acute Assessment and Plan: See above (3) Urinary tract infection: Code(s): N39.0 - Urinary tract infection, site not specified Status: Acute Assessment and Plan: See above (4) Acute kidney injury: Code(s): N17.9 - Acute kidney failure, unspecified Status: Acute Assessment and Plan: Patient presented with acute kidney injury which is likely multifactorial secondary to sepsis, POLI-inhibitor, diuretics, hypokalemia, NSAIDS Urine electrolytes suggest prerenal Continue IV fluids. Change to IV bicarb Renal ultrasound results noted Nephrology consulted May need hemodialysis if kidneys to not recover or continue to worsen (5) Acute hyperkalemia: Code(s): E87.5 - Hyperkalemia Status: Acute Assessment and Plan: Monitor (6) Metabolic acidosis: Code(s): E87.20 - Acidosis, unspecified Status: Acute Assessment and Plan: IV and p.o. bicarb ordered (7) Swelling of lower extremity: Code(s): M79.89 - Other specified soft tissue disorders Status: Acute Assessment and Plan: Likely volume overload from renal failure (8) Suspected malignant neoplasm: Code(s): R68.89 - Other general symptoms and signs Status: Acute Assessment and Plan: Question primary. Oncology consulted for further guidance and recommendations Will need biopsy Subjective Date/time seen: 05/10/22 13:12 Patient presented with picture consistent of sepsis Likely source is UTI and possibly a multifocal pneumonia Patient appears to had viral infection earlier this month which could have been followed by bacterial secondary infection Blood and urine cultures have been sent and are pending Myco
[2022-05-10 13:49] LABS: Hematocrit 33.4 % (42.0-52.0); Hemoglobin 10.9 g/dL (14.0-18.0)
--- NOTE | 2022-05-10 13:49 | WPDPROCEDUR ---
Procedures Central Line Placement Left IJ: Central Line Date: 05/10/22 Performed Emergently - Given emergent patient condition, temporal constraints may have precluded informed consent.: Yes Consent: I have discussed with the patient and/or surrogate, the non-emergent placement of a central venous catheter, including its clinical necessity/indication and associated potential risks and complications. The patient and/or surrogate understand(s) and acknowledge(s) the need to proceed with central venous catheter insertion as an important element of the patient's clinical management. Time Out Performed: Yes Patient Position: supine Patient placed on monitor/pulse ox: Yes Provider Prep: mask, sterile gown, sterile gloves, Max. sterile barrier precautions and hand hygiene with conventional soap/water or alcohol based hand rub Central line prep: Povidone-Iodine 1% Sterile US Technique with sterile gel/sterile probe covers: Yes Central line lumen inserted: triple Length (cm): 16 Depth of Insertion (cm): 16 Post Procedure: sutured in place, good blood return, all ports aspirated, flushed, capped, transparent dressing, hemostatic product, antimicrobial product and aseptic technique maintained throughout procedure Post procedure x-ray: tip of catheter in good position and no pneumothorax seen Patient tolerated procedure: well Complications: none
--- NOTE | 2022-05-10 13:50 | WPDPROCEDUR ---
Procedures Intubation Intubation Date: 05/10/22 Intubation Time: 07:30 Consent: Patient had a cardiac arrest and was full code. He was intubated emergently A pre-procedural Time-Out was completed immediately before starting the procedure and confirmed: Patient Identification, Site, Procedure, Patient Position and the Availability of Requisite Equipment: No Sedative: none Laryngoscope: fiber optic video scope ET tube size: cuffed Tube secured depth (cm): 27 Tube secured location: lips Tube placement confirmation: visualized tube passing through cords, equal breath sounds bilaterally, no breath sounds over epigastrium and confirmation by capnometry Patient tolerated procedure: other Intubation complications: difficult intubation Additional comments: Patient had a cardiac arrest and attempts were made to intubate patient during the code. It was a difficult intubation and required multiple attempts. Patient was very anterior and I had to bend the stylet to much more acute angle to get it to the vocal cord. Patient also had significant amount of dark black coffee-ground in his pharynx which required suctioning multiple times and did impair the view. Patient was also receiving CPR during the procedure. Patient also was on a air mattress which has deflated for the CPR and patient was not in the ideal position for intubation. Patient is morbidly obese. Hence required 3 attempts to intubate the patient
--- NOTE | 2022-05-10 13:53 | PDCODEBLUE ---
Code Blue Note Code Blue Note Time Arrived at Code Blue: 725 Initial Rhythm on Arrival: PEA Airway Management: Pt being bagged on arrival Chest Compressions: In process on arrival to bedside Result of Code Blue: Pt transferred to ICU (Patient remains in ICU) Cardiac Rhythm Post Code: Sinus tachycardia Code Blue Summary: On my arrival this morning to ICU patient was receiving CPR. I obtained brief information from the night nurse and she told me that around 6:00 a.m. patient started belching multiple times and was complaining of bloating and distention of his belly. She had called the night physician and a KUB was ordered and was pending. When medication reconciliation technician arrived to perform a KUB. Patient became unresponsive and on exam had no pulse. Tamera wade was called and patient was started on CPR. To when CPR was initiated patient vomited large amount of coffee-ground emesis all over his face and in the surrounding area. Patient had been given epinephrine push. When I arrived I took over the management. ACLS protocol was followed patient was given epinephrine pushes, CPR and he was also given bicarbonate. Patient was intubated with difficulty. Large amount of coffee-ground emesis was seen both in pharynx and coming out of esophagus and trachea. I suctioned significant amount of coffee-ground emesis. Patient was intubated. ROSC was obtained. Patient received 4 doses of epinephrine and 3 amps of bicarb in total. Post intubation patient was unresponsive. Chest x-ray was done to confirm ET tube placement and KUB suggested patient had ileus. Patient encephalopathy post cardiac arrest.. Total down time close to 15 minute
[2022-05-10 14:00] LABS: Creatine Kinase 128 U/L (55-170)
[2022-05-10 14:05] LABS: Lactic Acid 4.7 mmol/L (0.7-2.0)
[2022-05-10 14:12] LABS: Troponin I 0.031 ng/mL (0.000-0.034)
--- NOTE | 2022-05-10 14:59 | WPDINTPN ---
Progress Note: A&P Assessment and Plan (1) Cardiopulmonary arrest: Code(s): I46.9 - Cardiac arrest, cause unspecified Status: Acute Assessment and Plan: I suspect this is likely secondary to GI bleed with possible aspiration or aspiration during the CPR Check echocardiogram EKG reviewed Serial troponin ordered Check lower extremity Doppler again although initial Dopplers done on 05/05 were negative Will obtain CTA scan of the chest once stabilized. Patient is not a candidate for anticoagulation anyways due to GI bleed Consult cardiology (2) Anoxic brain injury: Code(s): G93.1 - Anoxic brain damage, not elsewhere classified Status: Acute Assessment and Plan: I suspect patient may have had anoxic brain injury as he was comatose post resuscitation and also was showing evidence of myoclonic jerking Patient has been started on TTM protocol Currently sedated with Versed and fentanyl Keppra Will obtain EEG on rewarming Will check CT head once hemodynamically stabilized (3) Aspiration pneumonia: Code(s): J69.0 - Pneumonitis due to inhalation of food and vomit Status: Acute Assessment and Plan: Patient already on vancomycin and cefepime. Add Flagyl Check sputum culture (4) Acute respiratory failure: Code(s): J96.00 - Acute respiratory failure, unspecified whether with hypoxia or hypercapnia Status: Acute Assessment and Plan: Post intubation chest x-ray and ABG reviewed Ventilator settings were adjusted and repeat ABG shows improvement in hypercarbia and hypoxia Wean FiO2 CTA lung is ordered and pending On empiric antibiotics for aspiration pneumonia Sputum culture ordered (5) Shock: Code(s): R57.9 - Shock, unspecified Status: Acute Assessment and Plan: Patient has been on low-dose Levophed was weaned off overnight Post cardiac arrest patient has been in shock and on multiple vasopressors Hydrocortisone added Patient was given 1 fluid bolus although patient is overall volume overloaded hence liberal amount of fluids were not given Lactic acid is being monitored and is improving 25% albumin is ordered Patient had poor IV access. He had dialysis catheter with 1 central venous port and 1 peripheral IV. He was on multiple infusions which were incompatible. Family was unreachable as they were called during the code with no answer to the phone. A left IJ central venous catheter was emergently placed for additional IV access medical necessity (6) Sepsis: Code(s): A41.9 - Sepsis, unspecified organism Status: Acute Assessment and Plan: Patient initially presented with picture consistent with sepsis. Likely source was UTI and possibly a multifocal pneumonia Patient appears to had viral infection earlier this month which could have been followed by bacterial secondary infection His procalcitonin level was elevated but his blood culture and urine cultures remain negative Blood and urine cultures have been sent and are pending Mycoplasma IgM was low, urine Legionella antigen was negative, urine pneumococcal antigen -pending Influenza RSV and COVID were negative Patient is currently on antibiotics in the form of vancomycin cefepime IV fluids were discontinued due to volume overload CT chest abdomen pelvis as above Pending MRSA screen UA was negative Repeat blood cultures were ordered on 05/09 (7) Multifocal pneumonia: Code(s): J18.9 - Pneumonia, unspecified organism Status: Acute Assessment and Plan: See above (8) Urinary tract infection: Code(s): N39.0 - Urinary tract infection, site not specified Status: Acute Assessment and Plan: See above (9) Acute kidney injury: Code(s): N17.9 - Acute kidney failure, unspecified Status: Acute Assessment and Plan: Patient presented with acute kidney injury which is likely multifactorial secondary to sepsis, POLI-inhibitor, diuretics,
[2022-05-10] MEDS: NOREPINEPHRINE 8 MG/D5W 250 ML 8 MG/250 ML BAG 52.5 MG IV CONT (17:29)
[2022-05-10 17:54] LABS: Glucose Point of Care 217 mg/dl (65-105)
[2022-05-10 18:28] LABS: Hematocrit 34.9 % (42.0-52.0); Hemoglobin 11.2 g/dL (14.0-18.0)
[2022-05-10] MEDS: INSULIN ASPART (*BKC) 100 UNITS/ML SUB-Q ×2 (18:36→21:45)
[2022-05-10 18:39] LABS: Creatine Kinase 104 U/L (55-170)
[2022-05-10 18:40] LABS: Lactic Acid Reflex 3.8 mmol/L (0.7-2.0)
[2022-05-10 18:55] LABS: Troponin I 0.036 ng/mL (0.000-0.034)
[2022-05-10 19:07] LABS: Vancomycin Random 17.4 ug/mL (10-20)
[2022-05-10] MEDS: levETIRAcetam 500MG/NACL 100ML 500 MG/100 ML BAG 400 MG IVPB (21:04)
[2022-05-10 21:05] LABS: Alveolar/Arterial O2 Gradient 297.9 mmHg; Base Excess ABG 0.1 mEq/l (+/-2.0); Fractional Inspired Oxygen 60 %; HCO3 ABG 25.4 mEq/l (22.0-26.0); Oxygen Saturation ABG 95.8 % (95.0-100.0); PCO2 ABG 43.8 mmHg (35.0-45.0); PO2 ABG 81.7 mmHg (80.0-100.0); PO2 FiO2 Ratio Arterial Blood 1.36 %; pH ABG 7.382 (7.350-7.450)
[2022-05-10 21:08] LABS: Device VENTILATOR; Modified Allen's Test Pass; Site Drawn RIGHT RADIAL
[2022-05-10 21:09] LABS: Arterial Blood Gas PEEP 5 cmH2O; Arterial Blood Gas Tidal Volume 450 ml; Arterial Blood Gas Vent Mode CMV; Arterial Blood Gas Ventilator rate 24 /MIN
[2022-05-10 21:10] LABS: Glucose Point of Care 242 mg/dl (65-105)
[2022-05-10] MEDS: MINERAL OIL/WHITE PETROLATUM OINTMENT 1 APPLIC EACH EYE (21:16)
--- NOTE | 2022-05-10 21:50 | PC.NURSE ---
Spoke with Linda from Radiology regarding CT chest for pulmonary with contrast and the patient having renal dysfunction. Patient is currently on dialysis, Dr. Lowry of Radiology informed Linda that it can only be done if we can guarantee dialysis will be preformed within [address] Grigsby updated. As patient cannot be guaranteed to have dialysis 24 hours after administration of contrast, CT chest for pulmonary will not be preformed tonight.
[2022-05-10] MEDS: NOREPINEPHRINE 8 MG/D5W 250 ML 8 MG/250 ML BAG 50.63 MG IV CONT (22:40)
[2022-05-11] VITALS (39 sets, daily range): BP systolic 74–126; BP diastolic 21–87; PULSE 62–140; RESP 18–27; TEMP 33.2–35.1; O2SAT 94–100; BMI 40.8
--- NOTE | 2022-05-11 | ECHO_ITS ---
Patient Info Name: Ramos Tong Age: 51 years : 1970 Gender: Male Ht: 73 in Wt: 307 lbs BSA: 2.74 m2 HR: 66 bpm BP: 106 / 69 mmHg Heart Rhythm: Sinus Rhythm Technical Quality: Fair Exam Date: 05/11/2022 8:23 AM Exam Location: [facility] Pulmonary Patient Status: Inpatient Admit Date: 05/04/2022 Staff Ordering Physician: Andrés Grigsby MD Welding Estimator: Valeria Kennedy RDCS Attending Provider: Giovani Mcpherson MD Exam Type: CA echo dop color flow w con Study Info Indications - Repeat echo for cardiac arrest Complete two-dimensional, color flow and Doppler transthoracic echocardiogram is performed with contrast to opacify the left ventricle and to improve the deliniation of the left ventricle endocardial borders. Contrast/Agitated Saline Contrast/Ag. Saline: Definity Amount: 3.00 ml Administered By: Valeria Kennedy RDCS Existing IV Access: Yes IV Access Condition: patent with no signs of infiltration Summary 1. Technically difficult study with limited views. Definity contrast enhancement. 2. Left ventricular chamber dimension is mildly enlarged. 3. Left ventricular systolic function is normal, estimated at >70%. 4. There is no increased left ventricular wall thickness. 5. The left ventricular diastolic function is normal. 6. There is no aortic valve stenosis. 7. There is no mitral valve regurgitation. Left Ventricle Left ventricular chamber dimension is mildly enlarged. Left ventricular systolic function is normal, estimated at >70%. There is no increased left ventricular wall thickness. The left ventricular diastolic function is normal. Technically difficult study with limited views. Definity contrast enhancement. Right Ventricle Right ventricular chamber dimension is normal. Right ventricular systolic function is normal. Left Atria Left atrial chamber dimension is normal. Right Atria Right atrial chamber dimension is mildly enlarged. Aortic Valve The aortic valve is not well visualized. There is no aortic valve stenosis. There is no aortic valve regurgitation. Pulmonic Valve The pulmonic valve is not well visualized. Mitral Valve The mitral valve has normal leaflets. There is no mitral valve regurgitation. The mitral valve annulus is mildly calcified. Tricuspid Valve The tricuspid valve leaflets are not well visualized. Unable to assess PA systolic pressure due to poor spectral resolution of tricuspid regurgitant jet velocity. Pericardium/Pleural The pericardium appears not well visualized. There is no pericardial effusion. Inferior Vena Cava Normal inferior vena cava with >50% collapse upon inspiration consistent with normal right atrial pressure, 5 mmHg. Aorta The aortic root size at the sinus of Valsalva is normal. Left Ventricular Outflow Tract Name Value Normal LVOT 2D LVOT Diameter 2.24 cm LVOT Doppler LVOT Peak Gradient 4 mmHg LVOT Mean Gradient 1 mmHg LVOT VTI 17.38 cm LVOT VTI/AV VTI Ratio
[2022-05-11] MEDS: metroNIDAZOLE 500 MG/ISO 100ML 500 MG/100 ML BAG 100 MG IVPB ×2 (00:58→09:28)
[2022-05-11] MEDS: ALBUMIN HUMAN 25% 25 GM/100 ML 100 ML IVPB ×2 (00:58→05:32)
[2022-05-11] MEDS: HYDROCORTISONE SODIUM SUCCINATE 100 MG/2 ML VIAL IV PUSH ×2 (00:59→09:28)
[2022-05-11 01:09] LABS: Glucose Point of Care 233 mg/dl (65-105)
[2022-05-11] MEDS: INSULIN ASPART (*BKC) 100 UNITS/ML SUB-Q (01:09)
[2022-05-11 01:10] LABS: Creatine Kinase 83 U/L (55-170); Lactic Acid Reflex 3.8 mmol/L (0.7-2.0)
[2022-05-11 01:22] LABS: Troponin I 0.022 ng/mL (0.000-0.034)
[2022-05-11] MEDS: MIDAZOLAM 100MG/NS 100ML(*CRX) 100 MG/100 ML BAG 7 MG IV CONT (03:44)
[2022-05-11] MEDS: NOREPINEPHRINE 8 MG/D5W 250 ML 8 MG/250 ML BAG 50.63 MG IV CONT (03:45)
[2022-05-11 03:59] LABS: Reflex Lactic Acid Yes or No Add Lactic
[2022-05-11 04:50] LABS: Hematocrit 34.6 % (42.0-52.0); Hemoglobin 11.1 g/dL (14.0-18.0); Mean Corpuscular HGB Conc 32.1 g/dl (32-36); Mean Corpuscular Hemoglobin 32.9 pg (26-34); Mean Corpuscular Volume 102.7 fl (80-100); Mean Platelet Volume 10.6 fl (7.4-10.4); Platelet Count Result 130 k/mm3 (150-375); Red Blood Count 3.37 M/mm3 (4.6-6.20); Red Cell Distribution Width 14.6 % (11.5-14.5); White Blood Count 41.5 K/mm3 (4.5-10.0)
[2022-05-11 05:01] LABS: Alanine Aminotransferase 220 U/L (6-50); Alkaline Phosphatase 242 U/L (38-126); Anion Gap 14 mmol/L (8-16); Aspartate Amino Transferase 515 U/L (17-59); Bilirubin,Total 1.1 mg/dL (0.2-1.3); Blood Urea Nitrogen 94 mg/dL (9-20); Carbon Dioxide 29 mmol/L (22-30); Chloride 89 mmol/L (98-107); Creatine Kinase 82 U/L (55-170); Estimated CRCL calculation 29 ml/min; Estimated Glomerular Filt Rate 15; Glucose 187 mg/dL (65-110); Magnesium 3.1 mg/dL (1.6-2.3); Phosphorus 7.7 mg/dL (2.5-4.5); Sodium 132 mmol/L (137-145)
[2022-05-11] MEDS: CENTRAL LINE FLUSH 10 ML IV PUSH (06:21)
[2022-05-11 06:29] LABS: Base Excess ABG 0.5 mEq/l (+/-2.0); Fractional Inspired Oxygen 40 %; HCO3 ABG 24.2 mEq/l (22.0-26.0); Oxygen Saturation ABG 96.3 % (95.0-100.0); PCO2 ABG 36.5 mmHg (35.0-45.0); PO2 ABG 80.2 mmHg (80.0-100.0)
[2022-05-11 06:30] LABS: Device VENTILATOR; Modified Allen's Test Pass; Site Drawn RIGHT RADIAL
[2022-05-11 06:32] LABS: Arterial Blood Gas PEEP 5 cmH2O; Arterial Blood Gas Tidal Volume 450 ml; Arterial Blood Gas Vent Mode CMV; Arterial Blood Gas Ventilator rate 24 /MIN
[2022-05-11 08:20] LABS: Glucose Point of Care 183 mg/dl (65-105)
--- NOTE | 2022-05-11 08:46 | PM.CNCAR ---
Assessment and Plan Assessment and plan (1) Cardiopulmonary arrest: Code(s): I46.9 - Cardiac arrest, cause unspecified Status: Acute Plan this is a 51-year-old man very ill with multiple important issues going on he appears to have a disseminated malignancy the pathology of which is pending. He also has end-stage renal failure and is been started on hemodialysis during this hospital stay. Yesterday he suffered a PE a arrest and was resuscitated and is now intubated on mechanical ventilator support. Efforts are being made now to consider transferring him for higher level of care as he will no longer hemodynamically tolerate dialysis. One would hope that the pathology results from last week's biopsy would be available relatively soon and would assist the patient's family in selecting code status. Once a disseminated malignancy diagnosis is established this conversation needs to be had with the patient's next of kin. At this point I do not have any specific cardiac recommendations to make. A follow-up echocardiogram is ordered for this morning was results are pending but I do not believe that will impact on these recommendations in any significant way. Emanuel Young MD [facility] History of Present Illness History of Present Illness Consult date/time: 05/11/22 08:46 Reason For Visit: septic shcok,pneumonia,acute renal failure Narrative: This is a 51-year-old patient I am seeing in the ICU today at the request of the housekeeper head/ hospitalist because of cardiac arrest which occurred yesterday. The patient has been hospitalized here at [facility] for about a week and came into the hospital with weakness and shortness of breath. Unfortunately for admission he was found to have severe renal failure and has been on dialysis since shortly after presentation he also has been found to have some sort of disseminated malignancy with numerous long and liver masses. He has had a biopsy of 1 of the liver masses I believe the pathology of that is pending at the time of this dictation. The patient apparently has previous history of heavy cigarette smoking. He is therefore suspected of having disseminated lung cancer. Yesterday the patient had a cardiac arrest and according to the notes in the chart had pulseless electrical activity. He received ACLS protocol for this for at least 30-40 minutes before returning to spontaneous circulation. In the ICU course he is now on a ventilator and days hypothermia protocol going follow-up echocardiogram is being performed as I come in to see him. In this setting I am seeing him in consultation his initial presenting electrocardiogram showed sinus rhythm with no significant abnormalities the ECG yesterday following resuscitation did show some mild diffuse ST segment depression. Troponin level following resuscitation was just slightly elevated out of normal range. An echocardiogram done earlier this hospitalization which was interpreted by Dr. Bautista was not remarkable for any LV systolic dysfunction or valvular dysfunction. The patient is morbidly obese with a BMI of 40. In this setting I am seeing him in consultation. Review of Systems Review of Systems: ROS unobtainable: Yes unobtainable due to endotracheal tube PMFSH Past Medical History Medical History Hypertension Tobacco dependence Surgical History Surgical History History of colonoscopy with polypectomy (11/2021) Tubular adenoma x2 (ascending and sigmoid). Hyperplastic polyp (rectal). History of incision and drainage (08/2016) Left palm and middle finger for abscess with associated cellulitis due to dog bite. Family History Family History Other Family history of arthritis Hypertension Social History Social History Social History:
[2022-05-11] MEDS: PERFLUTREN LIPID MICROSPHERES 1.5 ML VIAL DILUTED TO 10 ML TOTAL VOLUME IV PUSH (08:50)
--- NOTE | 2022-05-11 09:17 | IVDEFINITY ---
Prior to administration of IV Definity the patient was educated on the risks and benefits of the imaging enhancing agent including potential adverse side effects. The patient verbalized understanding. Allergies were verified. No exclusion criteria were identified and at least one of the following inclusion criteria were met: 1) physician request, 2) patient technically difficult to image (per the [place] [employer] guidelines of two or more segments not discernable within the apical view), or 3) questionable left ventricular function. ?
[2022-05-11] MEDS: levETIRAcetam 500MG/NACL 100ML 500 MG/100 ML BAG 400 MG IVPB (09:27)
[2022-05-11] MEDS: NOREPINEPHRINE 8 MG/D5W 250 ML 8 MG/250 ML BAG 43.13 MG IV CONT (09:27)
[2022-05-11] MEDS: MINERAL OIL/WHITE PETROLATUM OINTMENT 1 APPLIC EACH EYE (09:29)
[2022-05-11] MEDS: PANTOPRAZOLE SODIUM IV 40 MG VIAL IV PUSH (09:29)
[2022-05-11] MEDS: FENTANYL 2,500MCG/NS250ML(*CRX 2,500 MCG/250 ML BAG 15 MCG IV CONT (09:53)
--- NOTE | 2022-05-11 10:04 | ECG_ITS ---
Measurements Intervals [place] Rate: 150 P: [place]: 0 QRS: 24 QRSD: 102 T: 201 QT: 312 QTc: 493 Interpretive Statements ATRIAL FIBRILLATION WITH RAPID VENTRICULAR RESPONSE NONSPECIFIC ST & T-WAVE ABNORMALITY ABNORMAL ECG COMPARED TO ECG 05/10/2022 07:52:30 ATRIAL FIBRILLATION NOW PRESENT Electronically Signed On 05-11-2022 16:18:50 DEWATERER OPERATOR by Ko Gaston M.D.
[2022-05-11] MEDS: IPRATROPIUM BR 0.02% INH SOLN 0.5 MG/2.5 ML VIAL (10:08)
[2022-05-11] MEDS: ROCURONIUM BROMIDE 50 MG/5 ML VIAL IV PUSH ×2 (10:15→13:06)
[2022-05-11] MEDS: AMIODARONE 150 MG/D5W 100 ML 150 MG/100 ML BAG 600 MG IV CONT (10:15)
[2022-05-11] MEDS: AMIODARONE 360 MG/D5W 200 ML 360 MG/200 ML BAG 33.33 MG IV CONT (10:30)
--- NOTE | 2022-05-11 10:39 | WPDINTPN ---
Progress Note: A&P Assessment and Plan (1) Cardiopulmonary arrest: Code(s): I46.9 - Cardiac arrest, cause unspecified Status: Acute Assessment and Plan: I suspect this is likely secondary to GI bleed with possible aspiration or aspiration during the CPR Repeat echocardiogram is ordered and pending EKG reviewed Serial troponin have remained essentially flat Pending lower extremity Doppler again although initial Dopplers done on 05/05 were negative I wanted to check CTA scan of the chest but [facility] would not do a CTA unless patient is on dialysis. Patient currently is too hemodynamically unstable for hemodialysis. He is not a candidate for anticoagulation or tPA anyways to GI bleed. If Dopplers are positive for DVT he will be a candidate for a IVC filter placement Patient seen by cardiology (2) Anoxic brain injury: Code(s): G93.1 - Anoxic brain damage, not elsewhere classified Status: Acute Assessment and Plan: I suspect patient may have had anoxic brain injury as he was comatose post resuscitation and also was showing evidence of myoclonic jerking Patient has been started on TTM protocol He is currently sedated with Versed and fentanyl Keppra will be continued Will obtain EEG after rewarming Will check CT head once hemodynamically stabilized (3) Aspiration pneumonia: Code(s): J69.0 - Pneumonitis due to inhalation of food and vomit Status: Acute Assessment and Plan: Patient already on vancomycin and cefepime. Add Flagyl Check sputum culture (4) Acute respiratory failure: Code(s): J96.00 - Acute respiratory failure, unspecified whether with hypoxia or hypercapnia Status: Acute Assessment and Plan: Post intubation chest x-ray and ABG reviewed Ventilator settings were adjusted and repeat ABG shows improvement in hypercarbia and hypoxia Wean FiO2 CTA lung is ordered and pending On empiric antibiotics for aspiration pneumonia Sputum culture ordered (5) Shock: Code(s): R57.9 - Shock, unspecified Status: Acute Assessment and Plan: Patient has been on low-dose Levophed initially was weaned off overnight Post cardiac arrest patient has been in shock and on multiple vasopressors. Continue Levophed and vasopressin Continue Hydrocortisone Patient was given 1 fluid bolus although patient is overall volume overloaded hence liberal amount of fluids were not given Lactic acid is being monitored and is improving 25% albumin is ordered 2/5 Patient had poor IV access. He had dialysis catheter with 1 central venous port and 1 peripheral IV. He was on multiple infusions which were incompatible. Family was unreachable as they were called during the code with no answer to the phone. A left IJ central venous catheter was emergently placed for additional IV access medical necessity (6) Sepsis: Code(s): A41.9 - Sepsis, unspecified organism Status: Acute Assessment and Plan: Patient initially presented with picture consistent with sepsis. Likely source was UTI and possibly a multifocal pneumonia Patient appears to had viral infection earlier this month which could have been followed by bacterial secondary infection His procalcitonin level was elevated but his blood culture and urine cultures remain negative Blood and urine cultures have been sent and are pending Mycoplasma IgM was low, urine Legionella antigen was negative, urine pneumococcal antigen -pending Influenza RSV and COVID were negative Patient is currently on antibiotics in the form of vancomycin cefepime IV fluids were discontinued due to volume overload CT chest abdomen pelvis as above Negative MRSA screen UA was negative Repeat blood cultures were ordered on 05/09 and are pending (7) Multifocal pneumonia: Code(s): J18.9 - Pneumonia, unspecified organism Status: Acute Assessment and Plan: See above (8) Urinary tract infection:
--- NOTE | 2022-05-11 10:48 | P.PNNP_ITS ---
Progress Note: A&P Assessment and Plan (1) Acute kidney injury: Code(s): N17.9 - Acute kidney failure, unspecified Status: Acute Assessment and Plan: * likely ATN with multifactorial etiology: * prerenal factors * hypotension/shock * POLI-I/diuretic use LUMBER HANDLER * infection/sepsis * now complicated by cardiac arrest * evaluation to date: * urine electrolytes prerenal * urine eosinophils negative * renal ultrasound without obstruction * CPK mildly elevated but coming down * maintain blood pressure/MAP - on pressors * given GI symptoms and volume overload -- initiated on BOBBIN PAINTER/dialysis * was clinically feels better following HD day before and yesterday * concerning that BUN + creatinine did not change much following dialysis treatments * suspect highly catabolic with inflammation +/- malignancy (?) * hold HD today due to hemodynamic instabiltiy -- will likely need CRRT (and transfer to another facility in progress) * follow repeat labs and UOP for ongoing recovery (2) Septic shock: Code(s): A41.9 - Sepsis, unspecified organism; R65.21 - Severe sepsis with septic shock Status: Acute Assessment and Plan: * as evidenced by presentation with low BP, lactic acidosis, tachycardia, elevated WBC and WILLIAN * thought to be secondary to pneumonia +/- UTI * this is now further complicated by cardiac arrest (on 05/10/22) * follow culture data - blood/urine culture negative to date * follow hemodynamics * on vasopressor therapy at this time (3) Cardiopulmonary arrest: Code(s): I46.9 - Cardiac arrest, cause unspecified Status: Acute Assessment and Plan: * thought to be secondary to GI bleed +/- aspiration * concern for possible PE but not a canidate for anticoagulation given GI bleed * repeat LE dopplers results pending -- possible IVC filter if positive * follow-up on Echo * Cardiology following (4) Acute respiratory failure: Code(s): J96.00 - Acute respiratory failure, unspecified whether with hypoxia or hypercapnia Status: Acute Assessment and Plan: * intubated and on mechanical ventilation * possible complicated by aspiration * hold weaning until more stable (5) Upper GI bleeding: Code(s): K92.2 - Gastrointestinal hemorrhage, unspecified Status: Acute Assessment and Plan: * noted by coffee ground emesis during cardiac arrest * findings suggestive of cirrhosis on recent CT scan * mild coagulopathy with INR of 1.8 * on PPI and octreotide infusion * follow H/H * GI consulted (6) Atrial fibrillation with RVR: Code(s): I48.91 - Unspecified atrial fibrillation Status: Acute Assessment and Plan: * as noted by telemetry/EKG this AM * on amiodarone * Cardiology following (7) Multifocal pneumonia: Code(s): J18.9 - Pneumonia, unspecified organism Status: Acute Assessment and Plan: * as noted by admission imaging * CT of chest results noted -- innumerable pulmonary nodules, multiple hepatic nodules, and lymphadenopathy suspicious for metastatic disease * suspect will tissues biopsy for a definitive diagnosis * possible aspiration playing a role now as well (see #3) * follow culture data * on antibiotics (8) Metabolic acidosis: Code(s): E87.20 - Acidosis, unspecified Status: Acute Assessment and Plan: * secondary to lactic acidosis from sepsis and WILLIAN * improvement noted with bicarb IVFs * follow trend of lactic acid (9) Hyponatremia:
--- NOTE | 2022-05-11 10:48 | PM.PNNEP ---
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 infection/sepsis now complicated by cardiac arrest evaluation to date: urine electrolytes prerenal urine eosinophils negative renal ultrasound without obstruction CPK mildly elevated but coming down maintain blood pressure/MAP - on pressors given GI symptoms and volume overload -- initiated on AUTOMATIC OPERATOR/dialysis was clinically feels better following HD day before and yesterday concerning that BUN + creatinine did not change much following dialysis treatments suspect highly catabolic with inflammation +/- malignancy (?) hold HD today due to hemodynamic instabiltiy -- will likely need CRRT (and transfer to another facility in progress) follow repeat labs and UOP for ongoing recovery (2) Septic shock: Code(s): A41.9 - Sepsis, unspecified organism; R65.21 - Severe sepsis with septic shock Status: Acute Assessment and Plan: as evidenced by presentation with low BP, lactic acidosis, tachycardia, elevated WBC and WILLIAN thought to be secondary to pneumonia +/- UTI this is now further complicated by cardiac arrest (on 05/10/22) follow culture data - blood/urine culture negative to date follow hemodynamics on vasopressor therapy at this time (3) Cardiopulmonary arrest: Code(s): I46.9 - Cardiac arrest, cause unspecified Status: Acute Assessment and Plan: thought to be secondary to GI bleed +/- aspiration concern for possible PE but not a canidate for anticoagulation given GI bleed repeat LE dopplers results pending -- possible IVC filter if positive follow-up on Echo Cardiology following (4) Acute respiratory failure: Code(s): J96.00 - Acute respiratory failure, unspecified whether with hypoxia or hypercapnia Status: Acute Assessment and Plan: intubated and on mechanical ventilation possible complicated by aspiration hold weaning until more stable (5) Upper GI bleeding: Code(s): K92.2 - Gastrointestinal hemorrhage, unspecified Status: Acute Assessment and Plan: noted by coffee ground emesis during cardiac arrest findings suggestive of cirrhosis on recent CT scan mild coagulopathy with INR of 1.8 on PPI and octreotide infusion follow H/H GI consulted (6) Atrial fibrillation with RVR: Code(s): I48.91 - Unspecified atrial fibrillation Status: Acute Assessment and Plan: as noted by telemetry/EKG this AM on amiodarone Cardiology following (7) Multifocal pneumonia: Code(s): J18.9 - Pneumonia, unspecified organism Status: Acute Assessment and Plan: as noted by admission imaging CT of chest results noted -- innumerable pulmonary nodules, multiple hepatic nodules, and lymphadenopathy suspicious for metastatic disease suspect will tissues biopsy for a definitive diagnosis possible aspiration playing a role now as well (see #3) follow culture data on antibiotics (8) Metabolic acidosis: Code(s): E87.20 - Acidosis, unspecified Status: Acute Assessment and Plan: secondary to lactic acidosis from sepsis and WILLIAN improvement noted with bicarb IVFs follow trend of lactic acid (9) Hyponatremia: Code(s): E87.1 - Hypo-osmolality and hyponatremia Status: Acute Assessment and Plan: partly related to WILLIAN however, if malignancy is present, could be secondary to this as well some correction with AUTOMATIC OPERATOR/dialysis follow trend of sodium (10) Suspected malignant neoplasm: Code(s): R68.89 - Other general symptoms and signs Status: Acute Assessment and Plan: suspicion based on CT chest findings Oncology recommendations noted s/p biopsy of subclavi
[2022-05-11 11:42] LABS: Hematocrit 34.8 % (42.0-52.0); Hemoglobin 11.2 g/dL (14.0-18.0)
[2022-05-11 11:50] LABS: Creatine Kinase 72 U/L (55-170); Lactic Acid Reflex 3.6 mmol/L (0.7-2.0)
[2022-05-11 12:10] LABS: Glucose Point of Care 217 mg/dl (65-105)
--- NOTE | 2022-05-11 12:27 | PM.TDS ---
Transfer Discharge Sum: Prov Provider Date of admission: 05/04/22 15:22 Primary care physician: Ledy Musa, PAC Admitting clinician: Giovani Mcpherson MD Consults: 05/04/22 Consult to Physician Routine Comment: Consulting Provider: Lex Rolon Reason for consultation: metastatic disease? Has provider been notified: Yes Consult to Physician Routine Comment: Consulting Provider: Nabor Dash Reason for consultation: acute renal failure Has provider been notified: Yes Consult to Physician Routine Comment: Consulting Provider: Leif Miller Reason for consultation: septic shock, pneumonia Has provider been notified: Yes 05/10/22 Consult to Physician Routine Comment: Consulting Provider: Javier Iqbal machine scallop cutter/MD group to consult: gi Reason for consultation: gi bleed Has provider been notified: Yes Consult to Physician Routine Comment: spoke w exchange @ [phone] (, ) Consulting Provider: Christiano Thibodeaux machine scallop cutter/MD group to consult: Cardiology Reason for consultation: Cardiac arrest Has provider been notified: Yes DS: Admitting Diagnosis Discharge Date 05/11/2022 Admitting Diagnosis shortness of breath DS: Discharge Diagnosis Discharge Diagnosis (1) Sepsis: Code(s): A41.9 - Sepsis, unspecified organism Status: Acute Assessment and Plan: Patient presented with picture consistent of sepsis Likely source is UTI and possibly a multifocal pneumonia Patient appears to had viral infection earlier this month which could have been followed by bacterial secondary infection Blood and urine cultures have been sent and are pending Mycoplasma IgM, urine Legionella antigen, urine pneumococcal antigen -pending Influenza RSV and COVID were negative Continue empiric antibiotics in the form of vancomycin cefepime and azithromycin Patient on IV fluids which will be continued Patient has not required any vasopressors till now and lactic acid level has normalized 05/10/2022 Interval history: patient presented with shortness of breath is found to have a multifocal pneumonia serologies pending however procalcitonin is elevated and patient is being treated Cefepime, and vancomycin blood cultures so far no growth, patient is also found to have multiple pulmonary nodules and metastasis to liver and bone to further evaluate on 05/06 patient had a biopsy of supraclavicular lymph node pending pathology report, upon arrival patient had a significant elevated BUN and creatinine seen by nephrology and workup is in progress, today again patient complains of bloating abdominal and no BM for several days, KUB did not show any obstruction, started the patient on Colace and MiraLax, without much relief and very poor urine output, and hypotensive, on 05/08 patient was seen by factory hand and started patient on pressure and discussed with marketing coordinator suspect patient symptoms are stemming from uremia BUN is 118/3.10 Scr is improving from 5.9, on 05/08 marketing coordinator decided to start HD, and 1.5L was removed this did improver his BUN and patient was not as nauseased again on 05/10 patient had HD and removed 2.5L fluids, early this morning patient went into respiratory arrest and patient was intubated and currently on vent, will monitor, patient remains clinically stable will continue to monitor. (2) Multifocal pneumonia: Code(s): J18.9 - Pneumonia, unspecified organism Status: Acute Assessment and Plan: See above (3) Urinary tract infection: Code(s): N39.0 - Urinary tract infection, site not specified Status: Acute Assessment and Plan: See above (4) Acute kidney injury: Code(s): N17.9 - Acute kidney failure, unspecified Status: Acute Assessment and Plan: Patient presented with acute kidney injury which is likely multifactorial secondary to sepsis, POLI-inhibitor, diuretics, hypokalemia, NSAIDS Urine electr
[2022-05-11] MEDS: VASOPRESSIN INJ 100 UNITS in DEXTROSE 5% 95 ML IV CONT (12:43)
== END 2022-05-11 13:07 | disposition short-term general hospital (02) | DRG 853 ==
LOC: ANHED 14:17 → ANHICU 15:40
PROVIDERS: Chiropractor; Internal Medicine; Internal Medicine Nephrology; Physician Assistant; Admitting Provider Internal Medicine; Emergency Provider Emergency Medicine; PCP Physician Assistant; Visit Provider Family Medicine
DX: A41.9 Sepsis, unspecified organism (principal); I46.8 Cardiac arrest due to other underlying condition; J18.9 Pneumonia, unspecified organism; J69.0 Pneumonitis due to inhalation of food and vomit; R65.21 Severe sepsis with septic shock; N17.0 Acute kidney failure with tubular necrosis; R40.20 Unspecified coma; J96.02 Acute respiratory failure with hypercapnia; J96.01 Acute respiratory failure with hypoxia; E87.20 Acidosis, unspecified; E87.1 Hypo-osmolality and hyponatremia; J90 Pleural effusion, not elsewhere classified; Z68.41 Body mass index [BMI] 40.0-44.9, adult; G93.1 Anoxic brain damage, not elsewhere classified; K92.2 Gastrointestinal hemorrhage, unspecified; C22.0 Liver cell carcinoma; C78.01 Secondary malignant neoplasm of right lung; I10 Essential (primary) hypertension; F17.210 Nicotine dependence, cigarettes, uncomplicated; Z20.822 Contact with and (suspected) exposure to COVID-19; E87.5 Hyperkalemia; K59.00 Constipation, unspecified; E66.01 Morbid (severe) obesity due to excess calories; I48.91 Unspecified atrial fibrillation; Z88.0 Allergy status to penicillin; Z79.1 Long term (current) use of non-steroidal anti-inflammatories (NSAID); Z82.49 Family history of ischemic heart disease and other diseases of the circulatory system
CPT/HCPCS: 36415; 36600; 38505; 71045; 71250; 74018; 74176; 76775; 76942; 80048; 80053; 80069; 80074; 80202; 81001; 81050; 82140; 82375; 82436; 82550; 82570; 82805; 82948; 83050; 83605; 83735; 83874; 83880; 84100; 84145; 84156; 84300; 84439; 84443; 84480; 84484; 85014; 85018; 85025; 85027; 85055; 85610; 85730; 85999; 86140; 86704; 86706; 86738; 87040; 87081; 87086; 87340; 87449; 87637; 87899; 88305; 88313; 88342; 93005; 93306; 93970; 94002; 94003; 94640; 96361; 96365; 96367; 96375; 99291; A9270; C1751; C1752; C8929; C9113; G0257; J0131; J0282; J0456; J0610; J0692; J1644; J1650; J1720; J1815; J1953; J2250; J2354; J2405; J2765; J2930; J3010; J3370; J3430; J7030; J7042; J7120; P9047; Q9957